=== PATIENT | male | born 1965 | race Caucasian/White ===

== ENCOUNTER 2019-06-10 14:00 | Emergency (ER) | payer OTHER ==
[~2019-06-10] VITALS: Ht 188 cm; Wt 81.7 kg
--- OUTSIDE RECORDS SUMMARY | ~2019-06-10 | XMS | Clinical Summary ---
Demographics + + + | Address | [address] | | | [place] [address] | + + + | Home Phone | | + + + | Preferred Language | Unknown | + + + | Marital Status | Unknown | + + + | Moravian Affiliation | Unknown | + + + | Race | Unknown | + + + | Ethnic Group | Unknown | + + + Author + + + | Author | NON REVENUE LOCATIONS | + + + | Organization | NON REVENUE LOCATIONS | + + + | Address | Unknown | + + + | Phone | Unavailable | + + + Care Team Providers + +------+ + | Care Novelty Twister Tender Name | Role | Phone | + +------+ + PCP | Unavailable | + +------+ + Source Comments FRANCESCA is fully live on both [facility] Ambulatory and [facility] InPatient.[facility] Allergies Not on File Medications Not on file Active Problems Not on file Social History + +-------+ +--------+------+ | Tobacco Use | Types | Packs/Day | Years | Date | | | | | Used | | + +-------+ +--------+------+ | Never Assessed | | | | | + +-------+ +--------+------+ + + + | Sex Assigned at | Date Recorded | | | | + + + | Not on file | | + + + + + + + | Job Start Date | Occupation | Industry | + + + + | Not on file | Not on file | Not on file | + + + + + + + + | Travel History | Travel Start | Travel End | + + + + + + | No recent travel history available. | + + Last Filed Vital Signs Not on file Plan of Treatment + + + + + | Health Maintenance | Due Date | Last Done | Comments | + + + + + | Influenza (Flu) | | | | | vaccination (#1) | 9 | | | + + + + + | Pneumococcal | Aged Out | | No longer eligible | | vaccination | | | based on patient's | | | | | age to complete this | | | | | topic | + + + + + Results Not on filefrom Last 3 Months"
--- OUTSIDE RECORDS SUMMARY | ~2019-06-10 | XMS | Encounter Summary ---
Demographics + + + | Address | [address] | | | [place] [address] | + + + | Home Phone | | + + + | Preferred Language | Unknown | + + + | Marital Status | Unknown | + + + | Baptism Affiliation | Unknown | + + + | Race | Unknown | + + + | Ethnic Group | Unknown | + + + Author + + + | Author | [facility] | + + + | Organization | [facility] | + + + | Address | Unknown | + + + | Phone | Unavailable | + + + Care Team Providers + +------+ + | Care House Builder Name | Role | Phone | + +------+ + | Lang Vaca MD | PCP | | + +------+ + Encounter Details +--------+ + + + + | Date | Type | Department | Care Team | Description | +--------+ + + + + | 06/13/ | Abstract | Digestive Health | Clinic, | | | 2013 | | Center at [facility] [address] | Gastroenterology | | | | | [address] [place] | | | | | | Mailcode: [place] | | | | | | [facility] and | | | | | | [facility] [address] | | | | | | [place], [place] | | | | | | [address] | | | | | | [phone] | | | +--------+ + + + [...] recent travel history available. | + + documented as of this encounter Plan of Treatment Not on filedocumented as of this encounter Visit Diagnoses Not on filedocumented in this encounter"
--- OUTSIDE RECORDS SUMMARY | ~2019-06-10 | XMS | Clinical Summary ---
Demographics + + + | Address | [address] | | | [place] [address] | + + + | Home Phone | | + + + | Preferred Language | Unknown | + + + | Marital Status | | + + + | Faith Affiliation | Unknown | + + + | Race | Unknown | + + + | Ethnic Group | Unknown | + + + Author + + + | Author | [facility] | | | and [place] | + + + | Organization | [facility] | | | and [place] | + + + | Address | Unknown | + + + | Phone | Unavailable | + + + Support + + +---------+ + | Name | Relationship | Address | Phone | + + +---------+ + | Wendi Perez | ECON | Unknown | | + + +---------+ + Care Team Providers + +------+ + | Care Special Services Director Name | Role | Phone | + +------+ + | Lang Vaca MD | PCP | | + +------+ + Allergies + + + + + + | Active Allergy | Reactions | Severity | Noted | Comments | | | | | Date | | + + + + + + | Erythromycin Base | Other (See Comments) | | 10/14/19 | Reaction not | | | | | 12 | specified in outside | | | | | | medical records. | + + + + + + | Tapentadol | | | | | | Hydrochloride | | | | | + + + + + + | Tetracycline Hcl | Hives | | 09/19/19 | | | | | | 19 | | + + + + + + Medications + + + +---------+------+------+-------+ | Medication | Sig | Dispensed | Refills | Star | End | Statu | | | | | | t | Date | s | | | | | | Date | | | + + + +---------+------+------+-------+ | GRALISE 600 MG | | | 0 | 04/2 | | Activ | | tablet | | | | 7/20 | | e | | | | | | 15 | | | + + + +---------+------+------+-------+ | Buprenorphine | Place under the | | 0 | | | Activ | | HCl-Naloxone HCl | tongue. | | | | | e | | (SUBOXONE SL) | | | | | | | + + + +---------+------+------+-------+ | TESTOSTERONE | | | 0 | | | Activ | | CYPIONATE IM | | | | | | e | + + + +---------+------+------+-------+ | BD HYPODERMIC | | | 0 | 08/0 | | Activ | | NEEDLE 18G X 1" MISC | | | | 4/20 | | e | | | | | | 18 | | | + + + +---------+------+------+-------+ | ondansetron | dissolve 1 tablet ON | | 0 | 09/2 | | Activ | | (ZOFRAN ODT) 4 mg | TONGUE every 4 | | | 8/20 | | e | | disintegrating | hours if needed | | | 18 | | | | tablet | | | | | | | + + + +---------+------+------+-------+ | ondansetron | | | 0 | 10/1 | | Activ | | (ZOFRAN) 4 mg tablet | | | | 5/20 | | e | | | | | | 18 | | | + + + +---------+------+------+-------+ | oxyCODONE | | | 0 | 08/1 | | Activ | | (OXYCONTIN) 10 mg ER | | | | 4/20 | | e | | abuse-deterrent | | | | 18 | | | | tablet | | | | | | | + + + +---------+------+------+-------+ | B-D 3CC JAMIE-ION | | | 0 | 08/0 | | Activ | | SYR 21GX1" 21G X 1" | | | | 4/20 | | e | | 3 ML MISC | | | | 18 | | | + + + +---------+------+------+-------+ | testosterone | inject 0.5 | | 0 | 09/1 | | Activ | | cypionate | milliliter | | | 1/20 | | e | | (DEPO-TESTOSTERONE) | intramuscularly | | | 18 | | | | 200 mg/mL injection | every OTHER WEEK | | | | | | + + + +---------+------+------+-------+ | testosterone | | | 0 | 12/0 | | Activ | | cypionate | | | | 1/20 | | e | | (DEPO-TESTOSTERONE) | | | | 18 | | | | 200 mg/mL injection | | | | | | | + + + +---------+------+------+-------+ | SUBOXONE 8-2 MG SL | | | 0 | 12/0 | | Activ | | film | | | | 1/20 | | e | | | | | | 18 | | | + + + +---------+------+------+-------+ | SUBOXONE 12-3 MG | DIS 1 FILM UNT ONCE | | 0 | 10/0 | | Activ | | SL film | D | | | 2/20 | | e | | | | | | 18 | | | + + + +---------+------+------+-------+ | SUBOXONE 4-1 MG SL | take 1 FILM under | | 0 | 09/2 | | Activ | | film | the tongue three | | | 8/20 | | e | | | times a day for pain | | | 18 | | | + + + +---------+------+------+-------+ Active Problems + + + | Problem | Noted Date | + + + | 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 | | + + + | ENTHESOPATHY OF UNSPECIFIED SITE | | + + + + + | Overview: ICD-10 Record update | + + + +---+ | DEGENERATIVE DISC DISEASE, THORACIC SPINE | | + +---+ | BACK PAIN, THORACIC REGION | | + +---+ Encounters +--------+ + + + + | Date | Type | Specialty | Care Team | Description | +--------+ + + + + | 04/09/ | Orders Only | | Provider, | | | 2019 | | | Historical, MD | | +--------+ + + + + from Last 3 Months Family History + + +------+ + | Medical History | Relation | Name | Comments | + + +------+ + | Heart disease | Father | | | + + +------+ + | Rheum arthritis | Father | | | + + +------+ + | Rheumatologic | Father | | | | disease | | | | + + +------+ + | No known problems | Maternal | | | | | Grandfath | | | | | er | | | + + +------+ + | No known problems | Maternal | | | | | Grandmoth | | | | | er | | | + + +------+ + | No known problems | Mother | | | + + +------+ + | Arthritis | Other | | | + + +------+ + | No known problems | Paternal | | | | | Grandfath | | | | | er | | | + + +------+ + | No known problems | Paternal | | | | | Grandmoth | | | | | er | | | + + +------+ + | Cancer | Neg Hx | | | + + +------+ + | Diabetes | Neg Hx | | | + + +------+ + | Hypertension | Neg Hx | | | + + +------+ + + +------+ + + | Relation | Name | Status | Comments | + +------+ + + | Father | | | | + +------+ + + | Maternal Grandfather | | | | + +------+ + + | Maternal Grandmother | | | | + +------+ + + | Mother | | | | + +------+ + + | Other | | | | + +------+ + + | Paternal Grandfather | | | | + +------+ + + | Paternal Grandmother | | | | + +------+ + + Social History + + + +--------+ + | Tobacco Use | Types | Packs/Day | Years | Date | | | | | Used | | + + + +--------+ + | Former Smoker | Cigarettes | | | Quit: 2016 | + + + +--------+ + + +---+---+---+ | Smokeless Tobacco: | | | | | Never Used | | | | + +---+---+---+ + + +---------+ + | Alcohol Use | Drinks/We | oz/Week | Comments | | | ek | | | + + +---------+ + | No | 0 | 0.0 | | | | Standard | | | | | drinks or | | | | | | | | | | equivalen | | | | | t | | | + + +---------+ + [...] | + + Last Filed Vital Signs + + + + | Vital Sign | Reading | Time Taken | + + + + | Blood Pressure | 125/83 | 01/15/20198 PDT | + + + + | Pulse | 80 | 01/15/20198 PDT | + + + + | Temperature | - | - | + + + + | Respiratory Rate | 15 | 03/09/2015 1326 PDT | + + + + | Oxygen Saturation | - | - | + + + + | Inhaled Oxygen | - | - | | Concentration | | | + + + + | Weight | 81.6 kg (180 lb) | 11/29/20181504 PDT | + + + + | Height | 185.4 cm (6' 1") | 11/29/2018 1505 PDT | + + + + | Body Mass Index | 23.75 | 11/29/20185 PDT | + + + + Plan of Treatment + + + + + | Health Maintenance | Due Date | Last Done | Comments | + + + + + | Vaccine: | | | | | Dtap/Tdap/Td (1 - | 6 | | | | Tdap) | | | | + + + + + | Colorectal Cancer | | | | | Screening | 7 | | | | (Colonoscopy) | | | | + + + + + | Vaccine: Zoster (1 | | | | | of 2) | 7 | | | + + + + + | Vaccine: Influenza | | 09/21/2013 | | | (#1) | 9 | | | + + + + + Results Not on filefrom Last 3 Months Insurance + +--------+ +--------+ +---------+--------+ | Payer | Benefi | Subscriber | Effect | Phone | Address | Type | | | t Plan | ID | pedro | | | | | | / | | Dates | | | | | | Group | | | | | | + +--------+ +--------+ +---------+--------+ | [employer] | [employer]ERT | [id number] | 11/16/19 | [phone] | | Indemn | | WC | Y | | 14-Pre | 6 | | ity | | | MUTUAL | | sent | | | | | | WC | | | | | | + +--------+ +--------+ +---------+--------+ | UMR | UMR | [id number] | 09/11/19 | | | PPO | | | [place] | | 18-Pre | | | | | | | | sent | | | | | | HEALTH | | | | | | | | CARE | | | | | | | | PPO | | | | | | + +--------+ +--------+ +---------+--------+ + +--------+ +--------+ + + | Guarantor Name | Accoun | Relation to | Date | Phone | Billing Address | | | t Type | Patient | of | | | | | | | | | | + +--------+ +--------+ + + | Osmel Perez | Person | Self | [birth year] | | [address] | | [place] | al/Fam | | 1964 | [address] | [place] [address] | | | de | | | 4 (Home) | | | | | | | [phone] | | | | | | | 7 (Work) | | + +--------+ +--------+ + + | Osmel Perez | Worker | Self | [birth year] | | [address] | | [place] | [employer]h Comp | | 1964 | | [place] [address] | | | | | | 4 (Home) | | | | | | | [phone] | | | | | | | 7 (Work) | | + +--------+ +--------+ + + Advance Directives Patient has advance care planning documents on file. For more information, please contact:[facility] [place] [address]
--- OUTSIDE RECORDS SUMMARY | ~2019-06-10 | XMS | Clinical Summary ---
Demographics + + + | Address | [address] | | | [place] [address] | + + + | Home Phone | | + + + | Preferred Language | Unknown | + + + | Marital Status | Unknown | + + + | Roman Catholic Affiliation | Unknown | + + + | Race | Unknown | + + + | Ethnic Group | Unknown | + + + Author + + + | Author | [facility] (Historical as of | | | 04-27-19) | + + + | Organization | [facility] (Historical as of | | | 04-27-19) | + + + | Address | Unknown | + + + | Phone | Unavailable | + + + Support + + +---------+ + | Name | Relationship | Address | Phone | + + +---------+ + | Contacts,No | ECON | Unknown | | + + +---------+ + Care Team Providers + +------+ + | Care Soccer Commentator Name | Role | Phone | + +------+ + PP | Unavailable | + +------+ + Allergies Not on File Current Medications Not on file Active Problems Not [...] on file | | + + + Last Filed Vital Signs + + + + | Vital Sign | Reading | Time Taken | + + + + | Blood Pressure | 112/80 | 06/04/2009 10:24 AM PDT | + + + + | Pulse | - | - | + + + + | Temperature | - | - | + + + + | Respiratory Rate | - | - | + + + + | Oxygen Saturation | - | - | + + + + | Inhaled Oxygen | - | - | | Concentration | | | + + + + | Weight | 82.4 kg (181 lb 9.6 | 06/04/2009 10:24 AM PDT | | | oz) | | + + + + | Height | 177.8 cm (5' 10") | 06/04/2009 10:24 AM PDT | + + + + | Body Mass Index | 26.06 | 06/04/2009 10:24 AM PDT | + + + + Plan [...] + + | Vaccine: Influenza | | | | | (#1) | 9 | | | + + + + + Results Not on filefrom Last 3 Months Insurance + +--------+ +------+-------+---------+ | Payer | Benefi | Subscriber | Type | Phone | Address | | | t Plan | ID | | | | | | / | | | | | | | Group | | | | | + +--------+ +------+-------+---------+ | [facility] | [place] | [id number] | | | | | | | | | | | | | HEALTH | | | | | | | CARE - | | | | | | | UMR | | | | | + +--------+ +------+-------+---------+ + +--------+ +--------+ + + | Guarantor Name | Accoun | Relation to | Date | Phone | Billing Address | | | t Type | Patient | of | | | | | | | | | | + +--------+ +--------+ + + | NAT PEREZ | Person | Self [birth year] | Home: | [address] | | | al/Fam | | 1965 | [phone] | [place] [address] | | | de | | | [phone] | | + +--------+ +--------+ + +
--- OUTSIDE RECORDS SUMMARY | ~2019-06-10 | XMS | Encounter Summary ---
Demographics + + + | Address | [address] | | | [place] [address] | + + + | Home Phone | | + + + | Preferred Language | Unknown | + + + | Marital Status | Unknown | + + + | Mandaen Affiliation | Unknown | + + + | Race | Unknown | + + + | Ethnic Group | Unknown | + + + Author + + + | Author | [facility] | + + + | Organization | [facility] | + + + | Address | Unknown | + + + | Phone | Unavailable | + + + Care Team Providers + +------+ + | Care Instructional Resource Teacher Name | Role | Phone | + +------+ + | Lang Vaca MD | PCP | | + +------+ + Encounter Details +--------+ + + + + | Date | Type | Department | Care Team | Description | +--------+ + + + + | 06/13/ | Abstract | Digestive Health | Clinic, | | | 2013 | | Center at [facility] [address] | Gastroenterology | | | | | [address] | | | | | | Mailcode: [place] | | | | | | [facility] and | | | | | | [facility] | | | | | | [place], [place] | | | | | | [address] | | | | | | [phone] | | | +--------+ + + + [...]
--- OUTSIDE RECORDS SUMMARY | ~2019-06-10 | XMS | Encounter Summary ---
Demographics + + + | Address | [address] | | | [place] [address] | + + + | Home Phone | | + + + | Preferred Language | Unknown | + + + | Marital Status | | + + + | Taoism Affiliation | Unknown | + + + | Race | Unknown | + + + | Ethnic Group | Unknown | + + + Author + + + | Author | [facility] | | | and [place] | + + + | Organization | [facility] | | | and [place] | [...] Team Providers + +------+ + | Care Machine Tool Dresser Name | Role | Phone | + +------+ + | Lang Vaca MD | PCP | | + +------+ + Encounter Details +--------+ + + + + | Date | Type | Department | Care Team | Description | +--------+ + + + + | 04/09/ | Orders Only | [facility] | Provider, | | | 2018 | | SYSTEM GENERIC OP | MD Prashanth Pino | | | | | CONVERSION [address] | [place] | | | | | [address] [place], [place] | [place] [address] | | | | | [address] | | | | | | [phone] | | | +--------+ + + + [...]
--- OUTSIDE RECORDS SUMMARY | ~2019-06-10 | XMS | Clinical Summary ---
Demographics + + + | Address | [address] | | | [place] [address] | + + + | Home Phone | | + + + | Preferred Language | Unknown | + + + | Marital Status | Unknown | + + + | Hoahaoism Affiliation | Unknown | + + + [...] Team Providers + +------+ + | Care Bus Driver Name | Role | Phone | + +------+ + PCP | Unavailable | + +------+ + Source Comments FRANCESCA is fully live on both [facility] Ambulatory and [facility] InPatient.[facility] Allergies Not on File Medications Not on [...]
--- OUTSIDE RECORDS SUMMARY | ~2019-06-10 | XMS | Clinical Summary ---
Demographics + + + | Address | [address] | | | [place] [address] | + + + | Home Phone | | + + + | Preferred Language | Unknown | + + + | Marital Status | Unknown | + + + | Lutheran Affiliation | Unknown | + + + | Race | Unknown | + + + | Ethnic Group | Unknown | + + + Author + + + | Author | [facility] (Historical as of | | | 04-27-19) | + + + | Organization | [facility] (Historical as of | | | 04-27-19) [...] Team Providers + +------+ + | Care Franchise Specialist Name | Role | Phone | [...] | | | + +--------+ +------+-------+---------+ | [facility] | [place] | [id number] | | | | | | | [...] | 1965 | [phone] | [place] [address] | | | de | | | [phone] | | + +--------+ +--------+ + +
--- OUTSIDE RECORDS SUMMARY | ~2019-06-10 | XMS | Clinical Summary ---
Demographics + + + | Address | [address] | | | [place] [address] | + + + | Home Phone | | + + + | Preferred Language | Unknown | + + + | Marital Status | | + + + | Cheondoism Affiliation | Unknown | + + + | Race | Unknown | + + + | Ethnic Group | Unknown | + + + Author + + + | Author | [facility] | | | and [place] | + + + | Organization | [facility] | | | and [place] [...] Team Providers + +------+ + | Care Chemical Supervisor Name | Role | Phone | [...] | [employer] | [place]ERT | [id number] | 11/16/19 | [phone] | | Indemn | | WC | Y | | 14-Pre | 6 | | ity | | | MUTUAL | | sent | | | | | | WC | | | | | | + +--------+ +--------+ +---------+--------+ | UMR | UMR | [id number] | 09/11/19 | | | PPO | [...] | 1964 | 68 | [place] [address] | | | de | | | 4 (Home) | | | | | | | [phone] | | | | | | | 7 (Work) | | + +--------+ +--------+ + + | Osmel Perez | Worker | Self | [birth year] | | [address] | | [place] | [employer]h Comp | | 1964 | | [place] [address] | | | | | | 4 (Home) | | | | | | | [phone] | | | | | | | 7 (Work) | | + +--------+ +--------+ + + Advance Directives Patient has advance care planning documents on file. For more information, please contact:[facility] [place] [address]
--- OUTSIDE RECORDS SUMMARY | ~2019-06-10 | XMS | Encounter Summary ---
Demographics + + + | Address | [address] | | | [place] [address] | + + + | Home Phone | | + + + | Preferred Language | Unknown | + + + | Marital Status | | + + + | Church Affiliation | Unknown | + + + | Race | Unknown | + + + | Ethnic Group | Unknown | + + + Author + + + | Author | [facility] | | | and [place] | + + + | Organization | [facility] | | | and [place] | [...] Team Providers + +------+ + | Care Payroll Tax Specialist Name | Role | Phone | + +------+ + | Lang Vaca MD | PCP | | + +------+ + Encounter Details +--------+ + + + + | Date | Type | Department | Care Team | Description | +--------+ + + + + | 04/09/ | Orders Only | [facility] | Provider, | | | 2018 | | SYSTEM GENERIC OP | MD Prashanth Pino | | | | | CONVERSION [address] | [place] | | | | | [address] [place], [place] | [place] [address] | | | | | [address] | | | | | | [phone] | | | +--------+ + + + [...]
[~2019-06-10 14:00] MED LIST: AMBIEN10 MG PO; BISACODYL5 MG PO; FLECTOR1 EACH TP; GRALISE600 MG PO; LEVOTHYROXINE100 MCG PO; LIDOCAINE-PRILO30 GM TOP; MIRALAX119 GM PO; OXYCODONE HCL5 MG PO; OXYCONTIN40 MG PO; PERCOCET 7.5-31 EACH PO; TESTIM5 GM TD
--- OUTSIDE RECORDS SUMMARY | 2019-06-10 14:04 | XMS ---
PreManage Notification: NAT SALAZAR Security Director [facility] Events No recent Security Events currently on file [facility] There are no care providers on record at this time. Roberto has no Care Guidelines for this patient. Maximiliano VISIT COUNT (12 MO.) 1 JACEK [place]en[place] TOTAL 1 NOTE: Visits indicate total known visits. ED/UCC VISIT TRACKING (12 MO.) 06/10/2019 14:01 JACEK Moura [place] TYPE: Emergency COMPLAINT: - RIGHT LEG/HIP PAIN INPATIENT VISIT TRACKING (12 MO.) No inpatient visits to display in this time frame [id number]
== END 2019-06-10 16:05 | disposition home or self-care (01) ==
LOC: ED 14:00
DX: S76.011A Strain of muscle, fascia and tendon of right hip, initial encounter (principal); W10.9XXA Fall (on) (from) unspecified stairs and steps, initial encounter; Z88.1 Allergy status to other antibiotic agents; Z79.899 Other long term (current) drug therapy; Z79.891 Long term (current) use of opiate analgesic
CPT/HCPCS: 73502; 96372; 99283-25; J1885

== ENCOUNTER 2020-06-18 15:15 | Emergency (ER) | payer OTHER ==
[~2020-06-18] VITALS: Ht 188 cm; Wt 81.7 kg
--- OUTSIDE RECORDS SUMMARY | ~2020-06-18 | XMS | Encounter Summary ---
Demographics + + + | Address | [address] | | | [place] [address] | + + + | Home Phone | | + + + | Preferred Language | Unknown | + + + | Marital Status | | + + + | Judaism Affiliation | Unknown | + + + | Race | White | + + + | Ethnic Group | Not or | + + + Author + + + | Author | [facility] | | | and [place] | + + + | Organization | [facility] | | | and [place] | + + + | Address | Unknown | + + + | Phone | Unavailable | + + + Support + + +---------+ + | Name | Relationship | Address | Phone | + + +---------+ + | Wendi Perez | ECON | Unknown | | + + +---------+ + Care Team Providers + +------+ + | Care Engine Oiler Name | Role | Phone | + +------+ + | Rosy Lee PA-C | PCP | | + +------+ + Encounter Details +--------+ + + + + | Date | Type | Department | Care Team | Description | +--------+ + + + + | 05/04/ | Imaging | [facility] | Provider, | | | 2018 | Exam | [facility] | [address] | | | | | [address] | [address] | | | | | [address] | [place] [address] | | | | | [place] [address] | | | | | | [phone] | | | +--------+ + + + + Social History + +-------+ +--------+------+ | Tobacco Use | Types | Packs/Day | Years | Date | | | | | Used | | + +-------+ +--------+------+ | Never Smoker | | | | | + +-------+ +--------+------+ + +---+---+---+ | Smokeless Tobacco: | | | | | Never Used | | | | + +---+---+---+ + + +---------+ + | Alcohol Use | Drinks/Week | oz/Week | Comments | + + +---------+ + | No | 0 Standard drinks | 0.0 | | | | or equivalent | | | + + +---------+ + + + + | Sex Assigned at | Date Recorded | | | | + + + | Not on file | | + + + documented as of this encounter Plan of Treatment Not on filedocumented as of this encounter Procedures + +--------+ + + + | Procedure Name | Priori | Date/Time | Associated Diagnosis | Comments | | | ty | | | | + +--------+ + + + | XR LUMBAR SPINE | Routin | 11/09/2017 | | Results for this | | COMPLETE INCLUDING | e | 4:20 PM | | procedure are in the | | BENDING 6 + VW | | PST | | results section. | + +--------+ + + + documented in this encounter Results XR Lumbar Spine Complete With Bending 6+ (11/09/2017 4:20 PM PST) + + | Specimen | + + | | + + + + + | Narrative | Performed At | + + + | External films for comparison only | [facility] | | | | | No results will be in the chart. | | + + + + +---------+ + + | Performing | Address | City/State/Zipcode | Phone Number | | Organization | | | | + +---------+ + + | [facility] | | | | + +---------+ + + documented in this encounter Visit Diagnoses Not on filedocumented in this encounter"
--- OUTSIDE RECORDS SUMMARY | ~2020-06-18 | XMS | Encounter Summary ---
Demographics + + + | Address | [address] | | | [place] [address] | + + + | Home Phone | | + + + | Preferred Language | Unknown | + + + | Marital Status | | + + + | Christian Affiliation | Unknown | + + + | Race | White | + + + | Ethnic Group | Not or | + + + Author + + + | Author | [facility] | | | and [place] | + + + | Organization | [facility] | | | and [...] Team Providers + +------+ + | Care Engineering Systems Analyst Name | Role | Phone | + +------+ + | Jai Lopez MD | PCP | | + +------+ + Reason for Visit + +--------+ + | Reason | Onset | Comments | | | Date | | + +--------+ + | Referral | 05/06/ | DO NOT SCHEDULE per Dr. Wen. Patient needs to go to | | (PreAuthorization) | 2013 | tertiary center in [facility] | + +--------+ + Encounter Details +--------+ + + + + | Date | Type | Department | Care Team | Description | +--------+ + + + + | 05/06/ | Telephone | [facility] | Jose Martin Wen MD | Referral | | 2013 | | GASTROENTEROLOGY | [address], [place] | (PreAuthorization) | | | | [address] [place] | [address] [place], [place] | (DO NOT SCHEDULE per | | | | [address] [place], [place] | [address] | Dr. Wen. Patient | | | | [phone] | | needs to go to | | | | [phone] | | tertiary center in | | | | | | [place] or [place]) | +--------+ + + + + Social [...] + + documented as of this encounter Miscellaneous Notes Telephone Encounter - Marybel Lyons - 05/06/2014 8:53 AM PDTCalled and spoke with Robert Vaca office about referral for this patient. I advised that Dr. Wen review the re cords and recommends patient be referred to a tertiary center in [place] or [place]. Robert verbalized understanding and will notify Dr. Vaca. documented in this encounter Plan of Treatment Not on filedocumented as of this encounter Visit Diagnoses Not on filedocumented in this encounter"
--- OUTSIDE RECORDS SUMMARY | ~2020-06-18 | XMS | Encounter Summary ---
Demographics + + + | Address | [address] | | | [place] [address] | + + + | Home Phone | | + + + | Preferred Language | Unknown | + + + | Marital Status | | + + + | Presybeterian Affiliation | Unknown | + + + | Race | White | + + + | Ethnic Group | Not or | + + + Author + + + | Author | [facility] | | | and [place] | + + + | Organization | [facility] | | | [...] Team Providers + +------+ + | Care Final Assembly And Packing Supervisor Name | Role | Phone | + [...] | | [address] | [place] [address] | | | | | [place] [address] | | | | | | [phone] | | | +--------+ + + + [...] + +--------+ + + + | XR THORACIC SPINE 3 | Routin | 11/09/2017 | | Results for this | | VW | e | 4:25 PM | | procedure are in the | | | | PST | | results section. | + +--------+ + + + documented in this encounter Results XR Thoracic Spine 3 Vw (11/09/2017 4:25 PM PST) + + | Specimen | [...]
--- OUTSIDE RECORDS SUMMARY | ~2020-06-18 | XMS | Encounter Summary ---
Demographics + + + | Address | [address] | | | [place] [address] | + + + | Home Phone | | + + + | Preferred Language | Unknown | + + + | Marital Status | | + + + | Episcopalian Affiliation | Unknown | + + + | Race | White | + + + | Ethnic Group | Not or | + + + Author + + + | Author | [facility] | | | and [place] | + + + | Organization | [facility] | | | and [...] Team Providers + +------+ + | Care Account Director Name | Role | Phone | + +------+ + | Lang Vaca MD | PCP | | + +------+ + Encounter Details +--------+ + + + + | Date | Type | Department | Care Team | Description | +--------+ + + + + | 11/15/ | Abstract | [facility] | Provider, | | | 2019 | | PHYSIATRY [address] | [address] | | | | | [address] | [place] | | | | | [place] | [place] [address] | | | | | [address] | | | | | | [phone] | | | +--------+ + + + + Social History + + + [...]
--- OUTSIDE RECORDS SUMMARY | ~2020-06-18 | XMS | Encounter Summary ---
Demographics + + + | Address | [address] | | | [place] [address] | + + + | Home Phone | | + + + | Preferred Language | Unknown | + + + | Marital Status | | + + + | Yarsani Affiliation | Unknown | + + + | Race | White | + + + | Ethnic Group | Not or | + + + Author + + + | Author | [facility] | | | and [place] | + + + | Organization | [facility] | | | [...] Team Providers + +------+ + | Care Cosmetics Supervisor Name | Role | Phone | + +------+ + | Lang Vaca MD | PCP | | + +------+ + Reason for Visit + + + | Reason | Comments | + + + | New Patient | Neck Pain | + + + Evaluate & Treat (Routine) +--------+--------+ + + + + | Status | Reason | Specialty | Diagnoses / | Referred By | Referred To | | | | | Procedures | Contact | Contact | +--------+--------+ + + + + | Closed | | Physical | Diagnoses | Larisa, | Rachna, | | | | Medicine and | Strain of | Becca, | zO Valles MD | | | | Rehabilitatio | left | PRODUCT SUPPORT SPECIALIST [address] | [address] | | | | n | shoulder | [address] | [place] | | | | | Strain of | [place], | [place], [place] | | | | | neck | [place] [address] | [address] Phone: | | | | | | Phone: | [phone] | | | | | | [phone] | Fax: | | | | | | Fax: | [phone] | | | | | | [phone] | | +--------+--------+ + + + + Encounter Details +--------+---------+ + + + | Date | Type | Department | Care Team | Description | +--------+---------+ + + + | 03/21/ | Office | [facility] | Ronal Benedict, | Spondylosis of | | 2019 | Visit | PHYSIATRY [address] | PA-C [address] | cervical region | | | | [address] [place] | without myelopathy | | | | [place], [place] | [place] [address] | or radiculopathy | | | | [address] | [phone] | | | | | [phone] | | | +--------+---------+ + + + Social History + + [...] + + documented as of this encounter Last Filed Vital Signs + + + + + | Vital Sign | Reading | Time Taken | Comments | + + + + + | Blood Pressure | 98/63 | 11/29/2018 3:05 PM | | | | | PDT | | + + + + + | Pulse | 65 | 11/29/2018 3:05 PM | | | | | PDT | | + + + + + | Temperature | - | - | | + + + + + | Respiratory Rate | - | - | | + + + + + | Oxygen Saturation | - | - | | + + + + + | Inhaled Oxygen | - | - | | | Concentration | | | | + + + + + | Weight | 81.6 kg (180 lb) | 11/29/2018 3:05 PM | | | | | PDT | | + + + + + | Height | 185.4 cm (6' 1") | 11/29/2018 3:05 PM | | | | | PDT | | + + + + + | Body Mass Index | 23.75 | 11/29/2018 3:05 PM | | | | | PDT | | + + + + + documented in this encounter Patient Instructions Patient Instructions Ronal Benedict PA-C - 11/29/2018 3:20 PM PDTCervical facet arthritis. Facet injections ordered to target bilateral C5/6 and C6/7 facet joints. If injections provide only temporary relief we can consider another treatment called radio frequency ablation (RFA) which can provide 6-24 months of relief. Before we can perform the RFA, another short term injection procedure must be completed called a medial branch block ( MBB). The MBB will only provide a few hours of relief but this is an insurance required diag nostic procedure that will help with pin-pointing the location for the RFA. It is imperative that you complete the pain diary for all injection procedures and turn in the completed for m to our office. Facet Pain: Visit this web link for a short, and informative video: [email or web address] The facet joint is located when the vertebrae (bones of the spine) connect to each other. Pain occurs with extension and rotation of the spine (bending backwards and rotating), bend ing over and lifting a heavy load, standing, first things in the morning. Images of the spi ne show facet arthritis, fluid in the facet joints. Treatment included rest, anti-inflammat ories, physical therapy focusing on core strengthening, facet steroid injections. Steroids are a very strong anti-inflammatory, this helps reduce pain by reducing swelling. Complications of steroids are bleeding, infection, and an increase of blood sugars if you are diabetic. ad terminal makeup operator risk can lead to osteoporosis which is why we limited the number of injections to 3 times per year. Facet joints are located when the vertebrae (bones of the spine) connect to each other. Typically these joints can have arthritis in this and give a person centralized low back pain. The procedure takes about 20 minutes. You lie on your b ack and x-rays are taken. Once the region is localized, it is numbed and then injected with steroid. Radiofrequency Ablation (RFA) Burning of the nerves: This procedure is typically done when the steroid injections give excellent initial relief but does not last long. It is the same procedure as the steroid injections however it take s approximately 2 hours to complete. A needle is placed inside the facet joints and then co nnected to a battery pack which heats up the needle to burn the nerves inside the joint. Yo u must not eat after midnight the night before as you are put into procedural sedation where you can hear and talk but do not feel pain. You must have a tanker driver to get home from the hospital. You will feel more bruising pain to the location of the needles for approxima tely 4-5 days after this procedure, but once that clears up, you should be pain free for 8 m onths to 2 years, depends on when the nerve grows back. Facet Joint Injection Back or neck pain may be caused by a problem with your facet joints. If so, a facet joint i njection may help. With this treatment, medicine is injected into certain facet joints. The injection can help your doctor find problem joints. It may also relieve your pain. What is a facet joint? Bones called vertebrae make up your spine. Each vertebra has facets (flat surfaces) that to uch where the vertebrae fit together. These form a structure called a facet joint on each si de of the vertebrae. What is a facet joint injection? One or more facet joints in your back or neck can become inflamed (swollen and irritated). This may cause pain. During a facet joint injection, medicine is injected into the inflamed joints. This treatment may help reduce inflammation and relieve pain. Pain reliefmay last for weeks to months or longer. If the pain returns, you may need a repeat injection. Getting ready To get ready for your treatment, do the following: At least a week before treatment, tell your healthcare provider what medicines you take. This includes aspirin. Ask whether you should stop taking any of them before treatment. Tell your provider if you are or allergic to any medicines. Follow any directions you are given for not eating or drinking before the treatment. If asked, bring X-rays, MRIs, or other tests with you on the day of your treatment. Date Last Reviewed: 12/10/201719994334-9496 [employer] [place] [address]. All righ ts reserved. This information is not intended as a substitute for professional medical care. Always follow your healthcare professional's instructions. documented in this encounter Progress Notes Ronal Benedict PA-C - 11/29/2018 3:20 PM PDTFormatting of this note might be different fro m the original. Ronal Benedict PA-C [address] [place], [place] [address] FAX: CHIEF COMPLAINT: Chief Complaint Patient presents with New Patient Neck Pain HISTORY OF PRESENT ILLNESS: The patient is a 53 y.o. male with the complaint of bilateral neck pain/stiffness that radiates into the left shoulder that flared up approximatley 2-3 mo nths ago. The patient states that the symptoms began as the result of a work related injury in 2013. The patient rates his pain and discomfort as mild-severe. Since the symptoms bega n, he has noticed that symptoms have been constant and gradually worsening. He describes th e pain as a crushing, sharp and shooting feeling. The patient denies any radiation of pain p ast the left shoulder. In 2014 patient had bilateral C5-C6 and C6-C7 facet injection with s ignificant relief that lasted approximately 2 years until recently he had a flareup and neck pain. This has restricted his head and neck movement significantly. The patient also describes loss of range of motion. The patient does not report loss of st rength. He does not indicate a history of loss of fine motor function. The patient does not reports bowel or bladder incontinence. The patient does not reports s addle paresthesias. His symptoms improve with nothing. His symptoms worsen with movement of the neck and head. Treatments for these complaints have included massage, TENS Unit, traction, narcotic pain m edications, anti inflammatories, steroid injections, and muscle relaxant medications. Patient's medications, allergies, past medical, surgical, social and family histories were reviewed and updated as appropriate. PAST MEDICAL HISTORY: Past Medical History: Diagnosis Date Chronic neck pain Chronic pain disorder Chronic thoracic spine pain Compression fracture of thoracic vertebra (HCC) Hypogonadism, male Neck sprain Neuropathy Hands Pneumothorax on right right sided x3 Rash Strain of left shoulder, initial encounter Strain of neck muscle, initial encounter Strain of right shoulder, initial encounter Thyroid disorder Xeroderma PAST SURGICAL HISTORY: Past Surgical History: Procedure Laterality Date CHOLECYCTOSTOMY 06/2013 CHOLECYSTECTOMY, LAPAROSCOPIC PLEURAL SCARIFICATION Right 3x to fix collapsed lung WISDOM TOOTH EXTRACTION CURRENT MEDICATIONS: Current Outpatient Prescriptions Medication Sig Dispense Refill Buprenorphine HCl-Naloxone HCl (SUBOXONE SL) Place under the tongue. GRALISE 600 MG tablet 0 TESTOSTERONE CYPIONATE IM No current facility-administered medications for this visit. ALLERGIES: Allergies Allergen Reactions Erythromycin Base Other (See Comments) Reaction not specified in outside medical records. Tapentadol Hydrochloride Tetracycline Hcl Hives SOCIAL HISTORY: The patient reports that he quit smoking about 3 years ago. His smoking use included Cigar ettes. He has never used smokeless tobacco. He reports that he does not drink alcohol or use drugs. FAMILY HISTORY: Family History Problem Relation Age of Onset Heart disease Father Rheumatologic disease Father Rheum arthritis Father Arthritis Other No known problems Mother No known problems Maternal Grandmother No known problems Maternal Grandfather No known problems Paternal Grandmother No known problems Paternal Grandfather Cancer Neg Hx Diabetes Neg Hx Hypertension Neg Hx REVIEW OF SYSTEMS: REVIEW OF SYSTEMS: GENERALLY: No fever, no night sweats, no anemia, no fatigue, no recent profound weight ch anges. EYES: No eye problems, + use of corrective lenses, no eye injury, no double vision, no bli ndness. EARS, NOSE, AND THROAT: No changes in taste or smell, no hearing difficulty, no ringing in the ears, no ear drainage, no dizziness, no voice changes, no difficulty swallowing, no sig nificant snoring, no sleep apnea, no sinus problems, no major dental work. NEUROLOGICALLY: Please see the review of systems discussed above in the history of present illness. In addition, the patient has neck injury, pain in neck. PSYCHIATRIC: No depression, no sleep disorders, no anxiety, no bipolar disorder, no psycho tic episodes. CARDIOVASCULAR: No heart attacks, no heart murmur, no heart fluttering, no chest pain, no ankle swelling. LUNG DISEASE: No shortness of breath, no cough, no tuberculosis, no bloody cough, no asth ma, no emphysema/COPD. GASTROINTESTINAL: No bowel disease, no nausea or vomiting, no rectal bleeding, no constipa tion, no stool incontinence, no liver disease, no gallbladder disease, no abdominal pain, no ulcers. KIDNEY DISEASE: No urinary frequency, no painful or difficult urination, no incontinence. ENDOCRINE: No diabetes, no thyroid disease, no osteopenia or osteoporosis, no breast drain age. SKIN: No breast lumps, no skin changes, no rashes, no itches. HEMATOLOGIC/LYMPHATIC: No enlarged lymph nodes, no easy or unusual bleeding, no personal h istory of cancer. RHEUMATOLOGIC: No joint arthritis, no rheumatoid arthritis. PHYSICAL EXAMINATION: Blood pressure 98/63, pulse 65, height 1.854 m (6' 1"), weight 81.6 kg (180 lb). Body mass index is 23.75 kg/m. GENERAL: Osmel Perez is in no acute distress with unlabored respirations. Th e patient does appear uncomfortable throughout the exam today. HEENT: HEAD/FACE: EYES: EARS: NASOPHARNYX: OROPHARNYX: Normocephalic and atraumatic. There are no areas of recent trauma. Normal sclerae without icterus. No drainage or tenderness. Clear without drainage. Clear without erythema. NECK (ANTERIOR): Supple and without palpable masses. CHEST: The patient is in no acute respiratory distress with unlabored respirations. HEART: There is not lower extremity edema. ABDOMEN: Soft, non-tender, non-distended, and without palpable masses. NEUROLOGIC: The patient is awake, alert, and oriented to time, place, person. He follows simple and complex commands. His speech is fluent. He comprehends speech well. He has no apparent deficits with short or salvage determiner memory. Cranial nerves 2-12 appear grossly intact. Sensory exam does not show diminished sensation to light touch in the upper extremities. MUSCULOSKELETAL Cervical Spine: The cervical spine exam shows there is no tenderness over t he C-4, C-5, C-6 and C-7 region. Range of motion is limited. Rotation and extension does n ot cause symptoms to radiate into the upper extremities on both sides. Flexion and extensi on of the neck does cause severe discomfort. Cervical extension and rotation causes most pa in. Cervical facet loading positive. Bilateral upper extremity strength 5/5 REFLEXES: (2 OR 2+ IS NORMAL) REFLEX: RIGHT LEFT BICEPS 2+ 2+ BRACHIORADIALIS 2+ 2+ TRICEPS 2+ 2+ PATELLAR 2+ 2+ ACHILLES 2+ 2+ MACHUCA'S ABSENT ABSENT PLANTAR DOWNGOING DOWNGOING EXTREMITIES: No cyanosis, clubbing, or edema. Distal pulses are palpable. RADIOGRAPHIC REVIEW: Cervical MRI from 12/02/14 was reviewed today and displays severe bilateral C6-C7 neural for aminal stenosis. There is also significant facet arthritis at C5-6 and C6-7. ASSESSMENT: Encounter Diagnosis Name Primary? Spondylosis of cervical region without myelopathy or radiculopathy PLAN: 1) Today we discussed the patient's differential diagnosis with the likely primary issue be ing CERVICAL SPONDYLOSIS. Patient's description of symptoms, physical exam, and imaging sug gest this diagnosis at this time. 2) I counseled patient on treatment options which included conservative self management usi ng OTC NSAIDs/Ice and heat packs, physical therapy, prescription medications, epidural stero id injection, as well as possible surgical intervention. 3) Imaging: As descibed above in radiology review. 4) The patient has had significant conservative care including medications (NSAIDS and narc otics), PT (multiple sessions over the years) and wound care technician. Unfortunately Osmel Perez continues to have significant discomfort. It appears to me that the pain i s primarily coming from C5/C6 and C6/C7 facet joints. Based on the patient's history, physical examination and review of the available imaging th e patient has been diagnosed with pain coming primarily from the lumbar facet joints with no other lumbar pathology considered to be a significant possible source of discomfort. The p atjustin's pain has been moderate to severe, rated as a 6+ usually on a 0-10 scale. The pain is impacting activities of daily living including c-spine bending, twisting, driving. The pa michael has been dealing with this pain for more than 3 months and has failed conservative sergo atment with NSAIDs, PT and a home exercise program therefore therapeutic facet injections we re ordered today. The patient has had bilateral C5-C6 and C6-7 facet injections in the past with significant relief. He is exhibiting symptoms today consistent with facet arthritis and will likely leon efit from these repeat facet injections. I did feel that Osmel Perez would be a good candidate for interventional p rocedures and I offered Bilateral C5/C6 and C6/C7 facet steroid injections to be done. We did discuss MBB/RFA as potential future custodial options if injection(s) provide rel ief, especially if immediate relief. 5) Patient will follow up with me 3 weeks post injection/as needed to discuss any imaging a nd/or progress with today's treatment plan. 6) If current treatment plan is insufficient for symptom relief we could try MBB/RFA or cer vical MRI as the next therapy option. I spent 30 minutes in visit with Osmel Perez today with the majority of time spent counselling the patient on his diagnosis, options for his care, and coordinating his c are. documented in this en counter Plan of Treatment Not on filedocumented as of this encounter Results [place] Facet Injection Cervical (01/15/2019 4:56 PM PDT) + + | Specimen | + + | | + + + + -+ | Narrative | Performed At | + + -+ | | [facility] | | 01/15/2019Cervical Facet Steroid Injections Diagnosis: Cervical | | | Spondylosis ICD-9 Code 721.0 Osmel Perez presents to the | | | fluoroscopy suite for fluoroscopically-guided bilateral C5-C6 and | | | C6-C7 facet injections as part of conservative management for chronic | | | pain with cervical spondylosis. After informed consent was obtained, | | | the patient laid in the prone position on the fluoroscopy table. The | | | areas were identified under fluoroscopic guidance. The areas were | | | prepped and draped in sterile fashion. A 25-gauge, 1.5-inch needle was | | | inserted into each region and approximately 3 mL of buffered 1% | | | lidocaine was infused. Then, a 22-gauge spinal needle was inserted | | | into the middle portion of each facet under fluoroscopic guidance. | | | Confirmation into the joint spaces was obtained with infusion of | | | approximately 1 mL of Omnipaque contrast which showed outline of the | | | facet joints. Then, a combination of 2 mL of 1% lidocaine and 2 mL of | | | 40 mg/mL Kenalog was infused divided between the 4 joints. The patient | | | tolerated the procedure well without complications. Pre- and | | | post-procedure blood pressures were stable. The patient was given | | | verbal as well as written follow-up instructions. Prior to the start | | | of the procedure, the following were performed and/or verified, | | | including correct patient identity, correct site/side marked and | | | visible, agreement on the procedure to be done, correct patient | | | positioning and an accurate procedure consent form. Any safety | | | precautions based on clinical history and/or medication use have been | | | addressed. I personally performed the procedure above. Estimated blood | | | loss: MinimalComplications: NoneFindings: As expectedAnesthesia: | | | Local 1% Lidocaine | | |positioning and an accurate procedure consent form. Any safety precautions | | |based on clinical history and/or medication use have been addressed. I | | |personally performed the procedure above. | | | | | |Estimated blood loss: Minimal | | |Complications: None | | |Findings: As expected | | |Anesthesia: Local 1% Lidocaine | | + + -+ + +---------+ + + | Performing | Address | City/State/Zipcode | Phone Number | | Organization | | | | + +---------+ + + | [facility] | | | | + +---------+ + + documented in this encounter Visit Diagnoses + + | Diagnosis | + + | Spondylosis of cervical region without myelopathy or radiculopathy Cervical | | spondylosis without myelopathy | + + documented in this encounter
--- OUTSIDE RECORDS SUMMARY | ~2020-06-18 | XMS | Encounter Summary ---
Demographics + + + | Address | [address] | | | [place] [address] | + + + | Home Phone | | + + + | Preferred Language | Unknown | + + + | Marital Status | | + + + | Mosque Affiliation | Unknown | + + + | Race | White | + + + | Ethnic Group | Not or | + + + Author + + + | Author | [facility] | | | and [place] | + + + | Organization | [facility] | | | [...] Team Providers + +------+ + | Care Hiv Counselor Name | Role | Phone | + +------+ + | Jai Lopez MD | PCP | | + +------+ + Reason for Visit +--------+--------+ + | Reason | Onset | Comments | | | Date | | +--------+--------+ + | Other | 11/30/ | | | | 2012 | | +--------+--------+ + Encounter Details +--------+ + + + + | Date | Type | Department | Care Team | Description | +--------+ + + + + | 11/30/ | Telephone | [facility] | Kilo Jang, | Other | | 2012 | | MEDICINE | MD [address] | | | | | [address] | [place] | | | | | [address] | [address] | | | | | [place] | | | | | | [address] | | | | | | [phone] | | | +--------+ + + + [...] this encounter Miscellaneous Notes Telephone Encounter - Frannie Gonzalez - 11/30/2012 10:32 AM PDTTelephone call to patient to schedule a consultation with Dr. Jang. Voice mail box is full, unable to leave message. documented in this encou nter Plan of Treatment Not on filedocumented as of this encounter Visit Diagnoses Not on filedocumented in this encounter"
--- OUTSIDE RECORDS SUMMARY | ~2020-06-18 | XMS | Encounter Summary ---
Demographics + + + | Address | [address] | | | [place] [address] | + + + | Home Phone | | + + + | Preferred Language | Unknown | + + + | Marital Status | | + + + | Amish Affiliation | Unknown | + + + | Race | White | + + + | Ethnic Group | Not or | + + + Author + + + | Author | [facility] | | | and [place] | + + + | Organization | [facility] | | | and [...] Team Providers + +------+ + | Care Oil Field Equipment Mechanic Supervisor Name | Role | Phone | + +------+ + | Rosy Lee PA-C | PCP | | + +------+ + Reason for Visit +--------+--------+ + | Reason | Onset | Comments | | | Date | | +--------+--------+ + | Other | 04/07/ | injection authorization | | | 2014 | | +--------+--------+ + Encounter Details +--------+ + + + + | Date | Type | Department | Care Team | Description | +--------+ + + + + | 04/07/ | Telephone | [facility] | Frank Boland, | Other (injection | | 2014 | | NEUROSURGERY [address] | DO [address] | authorization) | | | | [address] | [address] [place], [place] | | | | | [place], [place] | [address] | | | | | [address] | | | | | | [phone] | | | +--------+ + + + [...] this encounter Miscellaneous Notes Telephone Encounter - Ria Ngo Master of [place] - 04/07/2015 3:07 PM PDTNoi helen galeano [facility] [employer] provide us with authorization for injection (Facet documented in this encounter Plan of Treatment Not on filedocumented as of this encounter Visit Diagnoses Not on filedocumented in this encounter"
--- OUTSIDE RECORDS SUMMARY | ~2020-06-18 | XMS | Encounter Summary ---
Demographics + + + | Address | [address] | | | [place] [address] | + + + | Home Phone | | + + + | Preferred Language | Unknown | + + + | Marital Status | | + + + | Yazidi Affiliation | Unknown | + + + | Race | White | + + + | Ethnic Group | Not or | + + + Author + + + | Author | [facility] | | | and [place] | + + + | Organization | [facility] | | | [...] Team Providers + +------+ + | Care Sound Truck Operator Name | Role | Phone | + +------+ + | Rosy Lee PA-C | PCP | | + +------+ + Encounter Details +--------+ + + + + | Date | Type | Department | Care Team | Description | +--------+ + + + + | 05/10/ | Orders Only | [facility] [place] | Frank Boland, | Osteoarthritis of | | 2016 | | NEUROSURGERY [address] | DO [address] | cervical spine with | | | | [address] | [address] [place], [place] | myelopathy (Primary | | | | [place] | [address] | Dx) | | | | [address] | | | | | | [phone] | | | +--------+ + + + [...] filedocumented as of this encounter Visit Diagnoses + + | Diagnosis | + + | Osteoarthritis of cervical spine with myelopathy - Primary | + + documented in this encounter"
--- OUTSIDE RECORDS SUMMARY | ~2020-06-18 | XMS | Encounter Summary ---
Demographics + + + | Address | [address] | | | [place] [address] | + + + | Home Phone | | + + + | Preferred Language | Unknown | + + + | Marital Status | | + + + | Baptism Affiliation | Unknown | + + + | Race | White | + + + | Ethnic Group | Not or | + + + Author + + + | Author | [facility] | | | and [place] | + + + | Organization | [facility] | | | [...] Team Providers + +------+ + | Care Earring Maker Name | Role | Phone | + +------+ + | Rosy Lee PA-C | PCP | | + +------+ + Encounter Details +--------+ + + + + | Date | Type | Department | Care Team | Description | +--------+ + + + + | 05/28/ | Hospital | C GENERIC IP | Conversion | Pain | | 2018 | Encounter | CONVERSION [address] | Transaction, | | | | | [address] | Provider Unknown | | | | | [place] | [phone] | | | | | [address] | | | | | | [phone] | | | +--------+ + + + [...] + + documented as of this encounter Medications at Time of Discharge + + + +---------+ + + | Medication | Sig | Dispensed | Refills | Start | End Date | | | | | | Date | | + + + +---------+ + + | B-D 3CC NNEKA | | | 0 | 04/14/20 | | | SYR 21GX1" 21G X 1" | | | | 18 | | | 3 ML MISC | | | | | | + + + +---------+ + + | BD HYPODERMIC | | | 0 | /12/29 | | | NEEDLE 18G X 1" MISC | | | | 18 | | + + + +---------+ + + | GRALISE 600 MG | | | 0 | 01/06/20 | | | tablet | | | | 15 | | + + + +---------+ + + | oxyCODONE | | | 0 | 04/24/20 | | | (OXYCONTIN) 10 mg ER | | | | 18 | | | abuse-deterrent | | | | | | | tablet | | | | | | + + + +---------+ + + | testosterone | inject 0.5 | | 0 | 05/22/20 | | | cypionate | milliliter | | | 18 | | | (DEPO-TESTOSTERONE) | intramuscularly | | | | | | 200 mg/mL injection | every OTHER WEEK | | | | | + + + +---------+ + + | cyclobenzaprine | | | 0 | 10/14/19 | | | (FLEXERIL) 10 mg | | | | 12 | 9 | | tablet | | | | | | + + + +---------+ + + | diclofenac | apply 2 patches at a | | 0 | 05/25/20 | | | (FLECTOR) 1.3% PTCH | time to affected | | | 12 | 9 | | | areas two times | | | | | | | daily | | | | | + + + +---------+ + + | gabapentin | Take 300 mg by mouth | | 0 | 05/25/20 | | | (NEURONTIN) 300 mg | nightly. | | | 12 | 9 | | capsule | | | | | | + + + +---------+ + + | SHELBIE 290 MCG | | | 0 | 01/23/20 | | | capsule | | | | 15 | 9 | + + + +---------+ + + | oxyCODONE | Take 20 mg by mouth | | 0 | 05/25/20 | | | (OXYCONTIN) 20 mg 12 | every 12 hours. | | | 12 | 9 | | hr tablet | | | | | | + + + +---------+ + + | oxyCODONE | Take 5 mg by mouth 3 | | 0 | 05/25/20 | | | (ROXICODONE) 5 mg | times daily as | | | 12 | 9 | | tablet | needed. | | | | | + + + +---------+ + + | | Take 1 tablet by | | 0 | | | | oxyCODONE-acetaminop | mouth every 4 hours | | | | 9 | | hen (PERCOCET) | as needed for Pain. | | | | | | 7.5-325 mg per | | | | | | | tablet | | | | | | + + + +---------+ + + | OXYCONTIN 40 MG ER | | | 0 | 12/31/19 | | | abuse-deterrent | | | | 15 | 9 | | tablet | | | | | | + + + +---------+ + + | oxymorphone | 1-2 tablets every | | 0 | 05/25/20 | | | (OPANA) 5 MG tablet | 4-6 hours as needed | | | 12 | 9 | + + + +---------+ + + | Testosterone | GEL apply every | | 0 | 05/25/20 | | | (TESTIM TD) | morning to clean, | | | 12 | 9 | | | dry, intact skin of | | | | | | | shoulders and upper | | | | | | | arms | | | | | + + + +---------+ + + | tiZANidine | Take 4 mg by mouth | | 0 | 05/25/20 | | | (ZANAFLEX) 4 mg | Twice daily as | | | 12 | 9 | | tablet | needed. | | | | | + + + +---------+ + + | zolpidem (AMBIEN) | Take 10 mg by mouth | | 0 | 05/25/20 | | | 10 mg tablet | nightly as needed. | | | 12 | 9 | + + + +---------+ + + documented as of this encounter Plan of Treatment Not on filedocumented as of this encounter Procedures + +--------+ + + + | Procedure Name | Priori | Date/Time | Associated Diagnosis | Comments | | | ty | | | | + +--------+ + + + | MRI LUMBAR SPINE WO | Routin | 01/12/2018 | | Results for this | | CONTRAST | e | 10:48 PM | | procedure are in the | | | | PDT | | results section. | + +--------+ + + + documented in this encounter Results MRI Lumbar Spine wo Contrast (01/12/2018 10:48 PM PDT) + + | Specimen | + + | | + + + + + | Narrative | Performed At | + + + | This is a non-reportable procedure without a radiologist report and | | | is used for image storage only | | + + + + + | Procedure Note | + + | Jhonathan Torres - 04/24/2019 8:31 AM PDT This is a non-reportable procedure | | without a radiologist report and isused for image storage only | + + documented in this encounter Visit Diagnoses + + | Diagnosis | + + | Pain Generalized pain | + + documented in this encounter
--- OUTSIDE RECORDS SUMMARY | ~2020-06-18 | XMS | Encounter Summary ---
Demographics + + + | Address | [address] | | | [place] [address] | + + + | Home Phone | | + + + | Preferred Language | Unknown | + + + | Marital Status | | + + + | Samaritan Affiliation | Unknown | + + + | Race | White | + + + | Ethnic Group | Not or | + + + Author + + + | Author | [facility] | | | and [place] | + + + | Organization | [facility] | | [...] Team Providers + +------+ + | Care Ground Services Instructor Name | Role | Phone | + +------+ + | Rosy Lee PA-C | PCP | | + +------+ + Reason for Visit Service/Procedure (Routine) +--------+--------+ + + + + | Status | Reason | Specialty | Diagnoses / | Referred By | Referred To | | | | | Procedures | Contact | Contact | +--------+--------+ + + + + | Closed | | Radiology | Diagnoses | | [facility] | | | | | Cervical | Rachna, | [address] | | | | | spondylosis | Oz Valles MD | [place], | | | | | Procedures | [address] | [place] | | | | | [place] | [place] | [address] | | | | | DX/THER AGNT | [place] | Phone: | | | | | [place] | [address] | [phone] | | | | | FACET JOINT, | Phone: | Fax: | | | | | | [phone] | [phone] | | | | | CERV/THORAC, | Fax: | | | | | | 1ST LEVEL | [phone] | | | | | | [place] | | | | | | | DX/THER AGNT | | | | | | | [place] | | | | | | | FACET JOINT, | | | | | | | | | | | | | | CERV/THORAC, | | | | | | | 2ND LEVEL | | | | | | | [place] | | | | | | | TRIAMCINOLON | | | | | | | E ACET INJ | | | | | | | NOS, 10 MG | | | | | | | Bilat C5-6, | | | | | | | C6-7 | | | | | | | Facet-referr | | | | | | | al from | | | | | | | Kya | | | +--------+--------+ + + + + Encounter Details +--------+ + + + + | Date | Type | Department | Care Team | Description | +--------+ + + + + | 05/11/ | Hospital | [facility] | Oz Briscoe | Cervical spondylosis | | 2015 | Encounter | MED CTR XRAY [address] | T, [address] | | | | | [address] [place] | [place], [place] | | | | | [place] [address] | [address] | | | | | [phone] | | | | | | | C Software Developer, [facility] | | | | | | [place] | | +--------+ + + + + [...] this encounter Last Filed Vital Signs + +---------+ + + | Vital Sign | Reading | Time Taken | Comments | + +---------+ + + | Blood Pressure | 139/81 | 05/11/2015 3:54 PM | | | | | PDT | | + +---------+ + + | Pulse | 48 | 05/11/2015 3:54 PM | | | | | PDT | | + +---------+ + + | Temperature | - | - | | + +---------+ + + | Respiratory Rate | - | - | | + +---------+ + + | Oxygen Saturation | - | - | | + +---------+ + + | Inhaled Oxygen | - | - | | | Concentration | | | | + +---------+ + + | Weight | - | - | | + +---------+ + + | Height | - | - | | + +---------+ + + | Body Mass Index | - | - | | + +---------+ + + documented in this encounter Medications at Time of Discharge [...] + + + +---------+ + + | LINZESS 290 MCG | | | 0 | [...] | + +--------+ + + + | FL FACET INJECTION | Routin | 05/11/2015 | Cervical | Results for this | | CERVICAL | e | 3:50 PM | spondylosis | procedure are in the | | | | PDT | | results section. | + +--------+ + + + documented in this encounter Results FL Facet Injection Cervical (05/11/2015 3:50 PM PDT) + + | Specimen | + + | | + + + + + | Narrative | Performed At | + + + | 05/11/2015 Cervical Facet Steroid Injections Diagnosis: Cervical | [facility] | | Spondylosis ICD-9 Code 721.0 Osmel Perez | [facility] | | presents to the fluoroscopy suite for fluoroscopically-guided [facility] | | bilateral C5-C6 and C6-C7 facet injections as part of conservative | - IMAGING | | management for chronic pain with cervical spondylosis. After | | | informed consent was obtained, the patient laid in the prone | | | position on the fluoroscopy table. The areas were identified under | | | fluoroscopic guidance. The areas were prepped and draped in sterile | | | fashion. A 25-gauge, 1.5-inch needle was inserted into each region and | | | approximately 3 mL of buffered 1% lidocaine was infused. Then, a | | | 22-gauge spinal needle was inserted into the middle portion of each | | | facet under fluoroscopic guidance. Confirmation into the joint | | | spaces was obtained with infusion of approximately 1 mL of Omnipaque | | | contrast which showed outline of the facet joints. Then, a | | | combination of 2 mL of 1% lidocaine and 2 mL of 40 mg/mL Kenalog was | | | infused divided between the 4 joints. The patient tolerated the | | | procedure well without complications. Pre- and post-procedure blood | | | pressures were stable. The patient was given verbal as well as | | | written follow-up instructions. Prior to the start of the | | | procedure, the following were performed and/or verified, including | | | correct patient identity, correct site/side marked and visible, | | | agreement on the procedure to be done, correct patient positioning | | | and an accurate procedure consent form. Any safety precautions based | | | on clinical history and/or medication use have been addressed. I | | | personally performed the procedure above. Estimated blood loss: | | | Minimal Complications: None Findings: As expected Anesthesia: Local | | | 1% Lidocaine | | + + + + + + + + | Performing | Address | City/State/Zipcode | Phone Number | | Organization | | | | + + + + + | [facility] | [address] | [place] | [phone] | | [facility] | | [address] | | | - IMAGING | | | | + + + + + documented in this encounter Visit Diagnoses + + | Diagnosis | + + | Cervical spondylosis Cervical spondylosis without myelopathy | + + documented in this encounter Administered Medications + +--------+ +-------+------+ + | Medication Order | MAR | Action | Dose | Rate | Site | | | Action | Date | | | | + +--------+ +-------+------+ + | iohexol (OMNIPAQUE 300) 300 | Given | 05/11/20 | 4 mLs | | Other | | mg/mL injection 4 mL 4 mL, | | 15 4:00 | | | (Comment | | Intra-articular, ONCE, Mon | | PM PDT | | | ) | | 05/11/15 at 1600, For 1 dose | | | | | | + +--------+ +-------+------+ + +---+---+ | | | +---+---+ + +-------+ +-------+---+ + | lidocaine 1% injection 5 mL 5 | Given | 05/11/20 | 5 mLs | | Other | | mL, Intradermal, ONCE, Mon | | 15 4:00 | | | (Comment | | 05/11/15 at 1600, For 1 dose | | PM PDT | | | ) | + +-------+ +-------+---+ + +---+---+ | | | +---+---+ + +-------+ +-------+---+---+ | sodium bicarbonate (NEUT) 4% | Given | 05/11/20 | 2 mLs | | | | injection 2 mL 2 mL, | | 15 4:00 | | | | | Infiltration, ONCE, 05/11/15 | | PM PDT | | | | | at 1600, For 1 dose, Use for | | | | | | | addition to other parenteral | | | | | | | solutions., | | | | | | + +-------+ +-------+---+---+ +---+---+ | | | +---+---+ + +-------+ +-------+---+---+ | triamcinolone acetonide | Given | 05/11/20 | 80 mg | | | | (KENALOG-40) 40 mg/mL injection | | 15 4:00 | | | | | 80 mg 80 mg, Intra-articular, | | PM PDT | | | | | ONCE, 05/11/15 at 1600, For 1 | | | | | | | dose, Shake well. Not for IV | | | | | | | use., | | | | | | + +-------+ +-------+---+---+ +---+---+ | | | +---+---+ documented in this encounter"
--- OUTSIDE RECORDS SUMMARY | ~2020-06-18 | XMS | Encounter Summary ---
Demographics + + + | Address | [address] | | | [place] [address] | + + + | Home Phone | | + + + | Preferred Language | Unknown | + + + | Marital Status | | + + + | Holiness Affiliation | Unknown | + + + | Race | White | + + + | Ethnic Group | Not or | + + + Author + + + | Author | [facility] | | | and [place] | + + + | Organization | [facility] | | | and [...] Team Providers + +------+ + | Care Studio Potter Name | Role | Phone | + +------+ + | Jai Lopez MD | PCP | | + +------+ + Encounter Details +--------+ + + + + | Date | Type | Department | Care Team | Description | +--------+ + + + + | 01/27/ | Orders Only | [facility] [place] | Frank Boland, | Neck pain (Primary | | 2015 | | NEUROSURGERY [address] | DO [address] | Dx) | | | | [address] | [address] [place] | | | | | [place] | [address] | | | | | [address] | | | | | | [phone] | | | +--------+ + + + [...] on filedocumented as of this encounter Results XR CERVICAL SPINE 2 OR 3 VIEWS (03/09/2015 12:54 PM PDT) + + | Specimen | + + | | + + + + + | Narrative | Performed At | + + + | XR CERVICAL SPINE 2 OR 3 VIEWS 03/09/2015 12:39 PM HISTORY: neck | [facility] | | pain. COMPARISON: None. FINDINGS: Visualized skull base and | [facility] | | facial structures demonstrate no acute findings. Prevertebral soft | [facility] | | tissues are normal. Mild degenerative changes are present of the | - IMAGING | | anterior atlantoaxial joint. There is mild cervical spondylosis. | | | There is no evidence for instability during flexion and extension. | | | Small posterior disc osteophyte complexes are observed from C4-5 | | | through C5-6. Bone mineralization is normal. The dens is normal. | | | Vertebral body height are preserved with no evidence for compression | | | fractures. There is moderate disc narrowing at C6-7. Facet joints are | | | intact. Soft tissue structures are unremarkable. Visualized upper | | | chest demonstrates no acute findings. IMPRESSION - Multilevel | | | degenerative changes with no evidence for instability. Dictated | | | and Signed by: Elijah Guthrie MD Electronically signed: 03/09/2015 | | | 1:34 PM | | + + + + + | Procedure Note | + + | Brian, Rad Results In - 03/09/2015 1:37 PM PDT XR CERVICAL SPINE 2 OR 3 VIEWS | | 03/09/2015 12:39 PMHISTORY: neck pain.COMPARISON: None.FINDINGS:Visualized skull base and | | facial structures demonstrate no acute findings.Prevertebral soft tissues are | | normal.Mild degenerative changes are present of the anterior atlantoaxial joint. Thereis | | mild cervical spondylosis. There is no evidence for instability duringflexion and | | extension. Small posterior disc osteophyte complexes are observedfrom C4-5 through C5-6. | | Bone mineralization is normal. The dens is normal.Vertebral body height are preserved | | with no evidence for compression fractures.There is moderate disc narrowing at C6-7. | | Facet joints are intact. Soft tissuestructures are unremarkable. Visualized upper chest | | demonstrates no acutefindings. IMPRESSION -Multilevel degenerative changes with no | | evidence for instability.Dictated and Signed by: Elijah Guthrie MD Electronically signed: | | 03/09/2015 1:34 PM | |flexion and extension. Small posterior disc osteophyte complexes are observed | |from C4-5 through C5-6. Bone mineralization is normal. The dens is normal. | |Vertebral body height are preserved with no evidence for compression fractures. | |There is moderate disc narrowing at C6-7. Facet joints are intact. Soft tissue | |structures are unremarkable. Visualized upper chest demonstrates no acute | |findings. | | | |IMPRESSION - | |Multilevel degenerative changes with no evidence for instability. | | | |Dictated and Signed by: Elijah Guthrie MD | | Electronically signed: 03/09/2015 1:34 PM | + + + + + + + | Performing | Address | City/State/Zipcode | Phone Number | | Organization | | | | + + + + + | [facility] | [address] | [place] | [phone] | | [facility] | | [address] | | | - IMAGING | | | | + + + + + documented in this encounter Visit Diagnoses + + | Diagnosis | + + | Neck pain - Primary Cervicalgia | + + documented in this encounter"
--- OUTSIDE RECORDS SUMMARY | ~2020-06-18 | XMS | Encounter Summary ---
Demographics + + + | Address | [address] | | | [place] [address] | + + + | Home Phone | | + + + | Preferred Language | Unknown | + + + | Marital Status | | + + + | Christian Affiliation | Unknown | + + + | Race | White | + + + | Ethnic Group | Not or | + + + Author + + + | Author | [facility] | | | and [place] | + + + | Organization | [facility] | | [...] Team Providers + +------+ + | Care Flight Communications Specialist Name | Role | Phone | + +------+ + | Jai Lopez MD | PCP | | + +------+ + Encounter Details +--------+ + + + + | Date | Type | Department | Care Team | Description | +--------+ + + + + | 04/08/ | Orders Only | [facility] [place] | Stacey Ontiveros, | Cervical spondylosis | | 2015 | | PHYSIATRY [address] | [facility] | (Primary Dx) | | | | [address] | | | | | | [place] | | | | | | [address] | | | | | | [phone] | | | +--------+ + + + [...] Cervical Facet Steroid Injections Diagnosis: Cervical | [facility] | | Spondylosis ICD-9 Code 721.0 Osmel Perez | [place] | | presents to the fluoroscopy suite for fluoroscopically-guided [facility] | | bilateral C5-C6 and C6-C7 [...] + | [facility] | [address] | [place] | [phone] | | [facility] | | [address] | | | - IMAGING | | | | + + + + + documented in this encounter Visit Diagnoses + + | Diagnosis | + + | Cervical spondylosis - Primary Cervical spondylosis without myelopathy | + + documented in this encounter"
--- OUTSIDE RECORDS SUMMARY | ~2020-06-18 | XMS | Clinical Summary ---
Demographics + + + | Address | [address] | | | [place] [address] | + + + | Home Phone | | + + + | Preferred Language | Unknown | + + + | Marital Status | Unknown | + + + | Mormonism Affiliation | Unknown | + + + [...] Team Providers + +------+ + | Care Color Dipper Name | Role | Phone | + +------+ + PCP | Unavailable | + +------+ + Source Comments FRANCESCA is fully live on both [facility] and [facility] InPatient.[facility]ly [facility] & [facility] Allergies Not on File Medications Not on [...] + + + Last Filed Vital Signs Not on file Plan of Treatment + + +-------+ + | Health Maintenance | Due Date | Last | Comments | | | | Done | | + + +-------+ + | Influenza (Flu) | | | | | vaccination (#1) | 0 | | | + + +-------+ + | Pneumococcal | Aged Out | | No longer eligible based on patient's age | | vaccination | | | to complete this topic | + + +-------+ + Results Not on filefrom Last 3 Months"
--- OUTSIDE RECORDS SUMMARY | ~2020-06-18 | XMS | Clinical Summary ---
Demographics + + + | Address | [address] | | | [place] [address] | + + + | Home Phone | | + + + | Preferred Language | Unknown | + + + | Marital Status | | + + + | Zoroastrianism Affiliation | Unknown | + + + | Race | White | + + + | Ethnic Group | Not or | + + + Author + + + | Author | [facility] | | | and [place] | + + + | Organization | [facility] | | [...] Team Providers + +------+ + | Care Various Exceptionalities Teacher Name | Role | Phone | [...] | + + + +---------+------+------+-------+ | B-D 3CSeth EARLY | | | 0 | 08/0 | [...] PAIN, THORACIC REGION | | + +---+ Family History + + +------+ + | [...] + | Blood Pressure | 125/83 | 01/15/2019 5:18 PM | | | | | PDT | | + + + + + | Pulse | 80 | 01/15/2019 5:18 PM | | | | | PDT | | + + + + + | Temperature | - | - | | + + + + + | Respiratory Rate | 15 | 03/09/2015 1:26 PM | | | | | PDT [...] | | + + + + + Plan of Treatment + + + + + | Health Maintenance | Due Date | Last | Comments | | | | Done | | + + + + + | Hepatitis C | | | | | Screening | 7 | | | + + + + + | Med Mgmt: Cr | | | | | | 7 | | | + + + + + | Med Mgmt: eGFR | | | | | | 7 | | | + + + + + | Medication | | | | | Management | 7 | | | + + [...] + + | Vaccine: Influenza | | 09/21/19 | | | (#1) | 0 | 14 | | + + + + + [...] | | + +--------+ +--------+ +---------+--------+ | [employer] | [employer]BOOGIE | [id number] | 11/16/19 | [phone] | | Indemn | | WC | Y | | 14-Pre | 6 | | ity | | | MUTUAL | | sent | | | | | | WC | | | | | | + +--------+ +--------+ +---------+--------+ | UMR | UMR | [id number] | 09/11/19 | | | PPO | [...] Self | [birth year] | | [address] | | Jose [place]jeandro | al/Fam | | 1965 | [phone] | [place] [address] | | | de | | | 4 (Home) | | | | | | | [phone] | | | | | | | 7 (Work) | | + +--------+ +--------+ + + | Osmel Perez | Worker | Self | [birth year] | | [address] | | [place]andro | [employer] | | 1964 | [phone] | [place] [address] | | | | | | 4 (Home) | | | | | | | [phone] | | | | | | | 7 (Work) | | + +--------+ +--------+ + + Advance Directives + + + + + | Type | Date Recorded | Patient | Explanation | | | | Shot Tube Machine Tender | | + + + + + | Power of | | | | | Metal Cnc Operator | | | | + + + + + | Advance | 01/15/2019 4:26 | | | | Directive | PM | | | + + + + +
--- OUTSIDE RECORDS SUMMARY | ~2020-06-18 | XMS | Encounter Summary ---
Demographics + + + | Address | [address] | | | [place] [address] | + + + | Home Phone | | + + + | Preferred Language | Unknown | + + + | Marital Status | | + + + | Roman Catholic Affiliation | Unknown | + + + | Race | White | + + + | Ethnic Group | Not or | + + + Author + + + | Author | [facility] | | | and [place] | + + + | Organization | [facility] | | [...] Team Providers + +------+ + | Care Expedition Supervisor Name | Role | Phone | [...] | | | | [place] | [phone] | | | | | [address] | | | | | | [phone] | | | +--------+ + + + [...] this | | VW | e | 10:45 PM | | procedure are in the | | | | PST | | results section. | + +--------+ + + + documented in this encounter Results XR Thoracic Spine 3 Vw (11/09/2017 10:45 PM PST) + + | Specimen | [...]
--- OUTSIDE RECORDS SUMMARY | ~2020-06-18 | XMS | Encounter Summary ---
Demographics + + + | Address | [address] | | | [place] [address] | + + + | Home Phone | | + + + | Preferred Language | Unknown | + + + | Marital Status | | + + + | Jew Affiliation | Unknown | + + + [...] Team Providers + +------+ + | Care Oncology Pharmacist Name | Role | Phone | + [...] | | KENDY [place] | [place] [address] | | | | | [place] [address] | | | | | | [phone] | | | +--------+ + + + [...] this | | CONTRAST | e | 1:35 PM | | procedure are in the | | | | PDT | | results section. | + +--------+ + + + documented in this encounter Results MRI Lumbar Spine wo Contrast (01/12/2018 1:35 PM PDT) + + | Specimen | [...]
--- OUTSIDE RECORDS SUMMARY | ~2020-06-18 | XMS | Encounter Summary ---
Demographics + + + | Address | [address] | | | [place] [address] | + + + | Home Phone | | + + + | Preferred Language | Unknown | + + + | Marital Status | | + + + | Cheondoism Affiliation | Unknown | + + + | Race | White | + + + | Ethnic Group | Not or | + + + Author + + + | Author | [facility] | | | and [place] | + + + | Organization | [facility] | | | [...] Team Providers + +------+ + | Care Human Resources Benefits Coordinator Name | Role | Phone | + +------+ + | Jai Lopez MD | PCP | | + +------+ + Encounter Details +--------+ + + + + | Date | Type | Department | Care Team | Description | +--------+ + + + + | 02/26/ | Abstract | [facility] [place] | Frank Boland, | | | 2014 | | NEUROSURGERY [address] | DO [address] | | | | | [facility] [address] | [address] [place] | | | | | [place] | [address] | | | | | [address] | | | | | | [phone] | | | +--------+ + + + [...]
--- OUTSIDE RECORDS SUMMARY | ~2020-06-18 | XMS | Encounter Summary ---
Demographics + + + | Address | [address] | | | [place] [address] | + + + | Home Phone | | + + + | Preferred Language | Unknown | + + + | Marital Status | | + + + | Buddhist Affiliation | Unknown | + + + | Race | White | + + + | Ethnic Group | Not or | + + + Author + + + | Author | [facility] | | | and [place] | + + + | Organization | [facility] | | | and [place] | + [...] Team Providers + +------+ + | Care Television Service Engineer Name | Role | Phone | + +------+ + | Jai Lopez MD | PCP | | + +------+ + Reason for Visit + + + | Reason | Comments | + + + | New Patient | Neck pain | + + + Evaluate & Treat (Routine) +--------+--------+ + + + + | Status | Reason | Specialty | Diagnoses / | Referred By | Referred To | | | | | Procedures | Contact | Contact | +--------+--------+ + + + + | Closed | | Neurosurgery | Diagnoses | Mckeon, | Kya, | | | | | Cervical | Manuel Leyva, | Frank Medrano DO | | | | | spondylosis | MD [address] | [address] | | | | | without | [place] | [address] | | | | | myelopathy | [place], | [place] | | | | | Procedures | [place] [address] | [address] Phone: | | | | | [place] OFFICE | Phone: | [phone] | | | | | CONSULTATION | [phone] | Fax: | | | | | NEW/ESTAB | Fax: | [phone] | | | | | PATIENT 62 | [phone] | | | | | | MIN | | | +--------+--------+ + + + + Encounter Details +--------+---------+ + + + | Date | Type | Department | Care Team | Description | +--------+---------+ + + + | 06/29/ | Office | [facility] | Frank Boland, | Kyphosis of cervical | | 2015 | Visit | NEUROSURGERY [address] | DO [address] | region, unspecified | | | | [address] | [address] [place], [place] | kyphosis type | | | | [place], [place] | [address] | (Primary Dx); | | | | [address] | | Cervical | | | | [phone] | | spondylosis; | | | | | | Cervical stenosis of | | | | | | spinal canal; | | | | | | Cervical radicular | | | | | | pain; Cervicalgia | +--------+---------+ + + + Social History + +-------+ [...] + + + | Blood Pressure | 110/65 | 03/09/2015 1:26 PM | | | | | PDT | | + + + + + | Pulse | 50 | 03/09/2015 1:26 PM | | | [...] Weight | 81.6 kg (180 lb) | 03/09/2015 1:26 PM | | | | | PDT | | + + + + + | Height | 185.4 cm (6' 1") | 03/09/2015 1:26 PM | | | | | PDT | | + + + + + | Body Mass Index | 23.75 | 03/09/2015 1:26 PM | | | | | PDT | | + + + + + documented in this encounter Patient Instructions Patient Instructions Frank Boland DO - 03/09/2015 2:07 PM PDTPlease undergo cervical f acet injections. Please follow-up with me as needed.Electronically signed by Frank Boland DO at 5 2:08 PM PDT documented in this encounter Progress Notes Frank Boland DO - 03/09/2015 2:08 PM PDTFormatting of this note might be different fro m the original. Frank Boland DO [address] [facility] [place] [address] FAX: NEUROSURGERY HISTORY AND PHYSICAL EXAMINATION CHIEF COMPLAINT: Chief Complaint Patient presents with New Patient Neck pain HISTORY OF PRESENT ILLNESS: The patient is a 49 y.o. male with the complaint of neck pain symptoms that began 1 year ago. The patient describes hitting his head on a door at work ab out a year and experiencing intermittent severe neck pain. The symptoms have been gradually worsening. He rates the pain as severe. The symptoms are intermittent. He describes the pain as achi ng. The patient describes arm symptoms down the left side. The arm symptoms account for at lesa st greater than or equal to 50% of his symptoms. His pain travels from his neck to his righ t shoulder and into the right hand. He does not indicate a history of loss of fine motor fu nction. Other findings of progressive myelopathy are not present. His symptoms improve with rest. His symptoms worsen with changing position, standing, sitting, bending, twisting and light exertion. He has tried lifestyle modification, pain medications, rest. PAST MEDICAL HISTORY: Past Medical History Diagnosis Date Thyroid disorder Neuropathy Hands PAST SURGICAL HISTORY: Past Surgical History Procedure Laterality Date Lung surgery Right 3x to fix collapsed lung CURRENT MEDICATIONS: Current Outpatient Prescriptions Medication Sig Dispense Refill cyclobenzaprine (FLEXERIL) 10 mg tablet diclofenac (FLECTOR) 1.3% PTCH apply 2 patches at a time to affected areas two times da de gabapentin (NEURONTIN) 300 mg capsule Take 300 mg by mouth nightly. GRALISE 600 MG tablet 0 LINZESS 290 MCG capsule 0 oxyCODONE (OXYCONTIN) 20 mg 12 hr tablet Take 20 mg by mouth every 12 hours. oxyCODONE (ROXICODONE) 5 mg tablet Take 5 mg by mouth 3 times daily as needed. oxyCODONE-acetaminophen (PERCOCET) 7.5-325 mg per tablet Take 1 tablet by mouth every 4 hours as needed for Pain. OXYCONTIN 40 MG ER abuse-deterrent tablet 0 oxymorphone (OPANA) 5 MG tablet 1-2 tablets every 4-6 hours as needed Testosterone (TESTIM TD) GEL apply every morning to clean, dry, intact skin of shoulder s and upper arms tiZANidine (ZANAFLEX) 4 mg tablet Take 4 mg by mouth Twice daily as needed. zolpidem (AMBIEN) 10 mg tablet Take 10 mg by mouth nightly as needed. No current facility-administered medications for this visit. ALLERGIES: Allergies Allergen Reactions Erythromycin Base Tapentadol Hydrochloride Tetracycline Hcl SOCIAL HISTORY: The patient reports that he has never smoked. He has never used smokeless tobacco. He repo rts that he does not drink alcohol or use illicit drugs. FAMILY HISTORY: Family History Problem Relation Age of Onset Arthritis Heart disease Father Rheumatologic disease Father REVIEW OF SYSTEMS GENERALLY: No fever, no night sweats, no anemia, no fatigue, + recent profound weight estrada es. EYES: + eye problems, + use of corrective lenses, no eye injury, no double vision, no blind ness. EARS, NOSE, AND THROAT: No changes in taste or smell, + hearing difficulty, no ringing in t he ears, no ear drainage, no dizziness, no voice changes, no difficulty swallowing, + signif icant snoring, no sleep apnea, + sinus problems, + major dental work. NEUROLOGICALLY: Please see the review of systems discussed above in the history of present illness. In addition, the patient has numbness/pain in arms, neck injury, back injury, pain in neck, pain in back. PSYCHIATRIC: No depression, + sleep disorders, no anxiety, no bipolar disorder, no psychoti c episodes. CARDIOVASCULAR: No heart attacks, no heart murmur, no heart fluttering, no chest pain, no a nkle swelling. LUNG DISEASE: No shortness of breath, no cough, no tuberculosis, no bloody cough, no asthma , no emphysema/COPD. GASTROINTESTINAL: No bowel disease, no nausea or vomiting, no rectal bleeding, no constipat ion, no stool incontinence, no liver disease, no gallbladder disease, no abdominal pain, no ulcers. KIDNEY DISEASE: No urinary frequency, no painful or difficult urination, no incontinence. ENDOCRINE: No diabetes, no thyroid disease, no osteopenia or osteoporosis, no breast draina ge. SKIN: No breast lumps, no skin changes, no rashes, no itches. HEMATOLOGIC/LYMPHATIC: No enlarged lymph nodes, no easy or unusual bleeding, no personal hi story of cancer. RHEUMATOLOGIC: No joint arthritis, no rheumatoid arthritis. PHYSICAL EXAMINATION: Blood pressure 110/65, pulse 50, resp. rate 15, height 1.854 m (6' 1"), weight 81.647 kg (1 80 lb). Body mass index is 23.75 kg/(m^2). GENERAL: Osmel Perez is in no acute distress with unlabored respirations. Th e patient does appear uncomfortable throughout the exam today. HEENT: HEAD/FACE: EYES: EARS: NASOPHARNYX: OROPHARNYX: Normocephalic and atraumatic. There are no areas of recent trauma. Normal sclerae without icterus. No drainage or tenderness. Clear without drainage. Clear without erythema. NECK (ANTERIOR): Supple and without palpable masses. CHEST: Clear to ausculation without crackles or wheeze. HEART: Regular rate and rhythm without murmurs. ABDOMEN: Soft, non-tender, non-distended, and without palpable masses. The patient is not obese. SPINE: The cervical spine exam shows there is tenderness over the C-5, C-6 and C-7 region. Range of motion is limited. Rotation and extension does cause symptoms to radiate into the extremities on left side. Flexion and extension of the neck does cause severe discomfort. No tenderness in the midline of the thoracic or lumbar spine. There is no major palpable d eformity of the spine. EXTREMITIES: No cyanosis, clubbing, or edema. Distal pulses are palpable. NEUROLOGICAL EXAM: MENTAL STATUS: The patient is awake, alert, and oriented. He follows simple and complex commands. His speech is fluent, he comprehends speech well, and he repeats well. He has no apparent deficits with short or terminal superintendent memory. CRANIAL NERVES: II: Acuity is intact. Britton are full to confrontation. III, IV, : The pupils are reactive. Extraocular movements are intact. No ptosis is note d. V: Facial sensation is intact and symmetric. VII: Facial movements are symmetric. VIII: Hearing is intact bilaterally. IX, X: The uvula and palate move appropriately. XI: Shrug is equal bilaterally. XII: Tongue protrusion is midline. MOTOR EXAM: (5 IS NORMAL) * Indicates pain limited MUSCLE/ MOVEMENT: RIGHT LEFT Deltoids 5 5 Biceps 5 5 Triceps 5 5 Wrist Flexion 5 5 Wrist Extension 5 5 Median Intrinsics 5 5 Ulnar Intrinsics 5 5 Accountancy Professor Strength 5 5 Hip Flexion 5 5 Hip Extension 5 5 Knee Flexion 5 5 Knee Extension 5 5 Dorsiflexion 5 5 Extensor Hallicus Longus 5 5 Plantarflexion 5 5 SENSORY EXAM: Sensory exam shows left C5 and C6-type dysesthesia. REFLEXES: (2 OR 2+ IS NORMAL) REFLEX: RIGHT LEFT BICEPS 2+ 2+ BRACHIORADIALIS 2+ 2+ TRICEPS 2+ 2+ PATELLAR 2+ 2+ ACHILLES 2+ 2+ MACHUCA'S ABSENT ABSENT PLANTAR DOWNGOING DOWNGOING GAIT: Gait is steady. PERIPHERAL NERVE/MISC: Tinel is negative at the wrists and elbows bilaterally. Phalen is negative. Straight leg raise is negative bilaterally. Alex's test of the hips is negative bilaterally. RADIOGRAPHIC REVIEW: The patient's imaging was reviewed in detail with the patient today during the visit. The MRI of the cervical spine from 12/02/14 demonstrates loss of cervical lordosis with resulting kyphosis. There is diffuse spondylosis, worse from C5-7. This results in foraminal stenosis , worse on the left at C5-6 and C6-7. Cervical flexion and extension views show exaggeration of kyphosis C5-6, but no dynamic ins tability. ASSESSMENT: NEUROSURGICAL DIAGNOSES: Encounter Diagnoses Name Primary? Kyphosis of cervical region, unspecified kyphosis type Yes Cervical spondylosis Cervical stenosis of spinal canal Cervical radicular pain Cervicalgia GENERAL DIAGNOSES: Past Medical History Diagnosis Date Thyroid disorder Neuropathy Hands PLAN: Osmel Perez presented today, and it was a pleasure seeing this patient and as sessing his problems. The patient has cervical kyphosis, spondylosis, and stenosis C5-7. Th is is likely contributing to his neck and arm pain. I had a lengthy discussion with the patient about his options for care including surgical a nd non-surgical options. At this point he would like to continue conservative management. I offered physical therapy referral, which he declined. He would like to have facet injection s C5-6 and C6-7 bilaterally. I will refer him to Dr. Briscoe for this. He will follow-up with me as needed. ELECTRONICALLY SIGNED BY: Frank Boland DO, 03/09/2015 14:18 documented in this en counter Plan of Treatment Not on filedocumented as of this encounter Visit Diagnoses + + | Diagnosis | + + | Kyphosis of cervical region, unspecified kyphosis type - Primary | + + | Cervical spondylosis Cervical spondylosis without myelopathy | + + | Cervical stenosis of spinal canal Spinal stenosis in cervical region | + + | Cervical radicular pain Brachial neuritis or radiculitis nos | + + | Cervicalgia | + + documented in this encounter
--- OUTSIDE RECORDS SUMMARY | ~2020-06-18 | XMS | Encounter Summary ---
Demographics + + + | Address | [address] | | | [place] [address] | + + + | Home Phone | | + + + | Preferred Language | Unknown | + + + | Marital Status | | + + + | Mandaeism Affiliation | Unknown | + + + | Race | White | + + + | Ethnic Group | Not or | + + + Author + + + | Author | [facility] | | | and [place] | + + + | Organization | [facility] | | [...] Team Providers + +------+ + | Care Snowsport Instructor Name | Role | Phone | [...] | | [place] | [place] [address] | | | | | [place] [address] | | | | | | [phone] | | | +--------+ + + + [...] + +--------+ + + + | MRI THORACIC SPINE | Routin | 01/12/2018 | | Results for this | | WO CONTRAST | e | 1:10 PM | | procedure are in the | | | | PDT | | results section. | + +--------+ + + + documented in this encounter Results MRI Thoracic Spine wo Contrast (01/12/2018 1:10 PM PDT) + + | Specimen | [...]
--- OUTSIDE RECORDS SUMMARY | ~2020-06-18 | XMS | Encounter Summary ---
Demographics + + + | Address | [address] | | | [place] [address] | + + + | Home Phone | | + + + | Preferred Language | Unknown | + + + | Marital Status | | + + + | Rastafarian Affiliation | Unknown | + + + | Race | White | + + + | Ethnic Group | Not or | + + + Author + + + | Author | [facility] | | | and [place] | + + + | Organization | [facility] | | | and [...] Team Providers + +------+ + | Care Cash Sales Audit Clerk Name | Role | Phone | + [...] | | | | [place] | [phone] | | | | | [address] | | | | | | [phone] | | | +--------+ + + + [...] + + + | XR LUMBAR SPINE 4 + | Routin | 11/09/2017 | | Results for this | | VW | e | 10:46 PM | | procedure are in the | | | | PST | | results section. | + +--------+ + + + documented in this encounter Results XR Lumbar Spine 4 + Vw (11/09/2017 10:46 PM PST) + + | Specimen | [...]
--- OUTSIDE RECORDS SUMMARY | ~2020-06-18 | XMS | Encounter Summary ---
Demographics + + + | Address | [address] | | | [place] [address] | + + + | Home Phone | | + + + | Preferred Language | Unknown | + + + | Marital Status | | + + + | Advent Affiliation | Unknown | + + + | Race | White | + + + | Ethnic Group | Not or | + + + Author + + + | Author | [facility] | | | and [place] | + + + | Organization | [facility] | | | [...] Team Providers + +------+ + | Care Textile Worker Name | Role | Phone | + [...] | | | | [place] | [phone] | | | | | [address] | | | | | | [phone] | | | +--------+ + + + [...] | | WO CONTRAST | e | 10:47 PM | | procedure are in the | | | | PDT | | results section. | + +--------+ + + + documented in this encounter Results MRI Thoracic Spine wo Contrast (01/12/2018 10:47 PM PDT) + + | Specimen | [...]
--- OUTSIDE RECORDS SUMMARY | ~2020-06-18 | XMS | Encounter Summary ---
Demographics + + + | Address | [address] | | | [place] [address] | + + + | Home Phone [...] Team Providers + +------+ + | Care Resource Teacher Name | Role | Phone | + +------+ + | Lang aVca MD | PCP | | + +------+ + Encounter Details +--------+ + + + + | Date | Type | Department | Care Team | Description | +--------+ + + + + | 04/09/ | Orders Only | [facility] | Provider, | | | 2019 | | SYSTEM GENERIC OP | MD [address] | | | | | [address] | [place] | | | | | [address] [place], [place] | [place] [address] | | | | | [address] | | | | | | [phone] | | | +--------+ + + + [...]
--- OUTSIDE RECORDS SUMMARY | ~2020-06-18 | XMS | Encounter Summary ---
Demographics + + + | Address | [address] | | | [place] [address] | + + + | Home Phone | | + + + | Preferred Language | Unknown | + + + | Marital Status | | + + + | Synagogue Affiliation | Unknown | + + + [...] Team Providers + +------+ + | Care Swinging Cut Off Saw Operator Name | Role | Phone | + +------+ + PCP | Unavailable | + +------+ + Encounter Details +--------+ + + + + | Date | Type | Department | Care Team | Description | +--------+ + + + + | 05/24/ | Abstract | [place] [facility] | DATA MIGRATION KAYLYNN | | | 2011 | | Conversion Location | SR | | | | | [address] [facility] | | | | | | [place], [place] | | | | | | [address] | | | | | | [phone] | | | +--------+ + + + [...] + + + | Blood Pressure | 98/64 | 10/14/2011 12:00 AM | | | | | PST | | + + + + + | Pulse | - | - | | + [...] + + + + | Weight | 86.2 kg (190 lb) | 10/14/2011 12:00 AM | | | | | PST | | + + + + + | Height | 185.4 cm (6' 1") | 08/19/2011 12:00 AM | | | | | PST | | + + + + + | Body Mass Index | 25.07 | 08/19/2011 12:00 AM | | | | | PST | | + + + + + documented in this encounter Plan of Treatment Not on filedocumented as of this encounter Visit Diagnoses Not on filedocumented in this encounter
--- OUTSIDE RECORDS SUMMARY | ~2020-06-18 | XMS | Encounter Summary ---
Demographics + + + | Address | [address] | | | [place] [address] | + + + | Home Phone | | + + + | Preferred Language | Unknown | + + + | Marital Status | | + + + | Quaker Affiliation | Unknown | + + + | Race | White | + + + | Ethnic Group | Not or | + + + Author + + + | Author | [facility] | | | and [place] | + + + | Organization | [facility] | | | [...] Team Providers + +------+ + | Care Industrial Service Technician Name | Role | Phone | + +------+ + PCP | Unavailable | + +------+ + Reason for Visit +--------+--------+ + | Reason | Onset | Comments | | | Date | | +--------+--------+ + | Other | 10/10/ | | | | 2019 | | +--------+--------+ + Encounter Details +--------+ + + + + | Date | Type | Department | Care Team | Description | +--------+ + + + + | 10/10/ | Telephone | [facility] [place] | Oz Briscoe | Other | | 2019 | | PHYSIATRY [address] | T, MD [address] | | | | [address] | [place], [place] | | | | | [place], [place] | [address] | | | | | [address] | | | | | | [phone] | | | +--------+ + + + [...] this encounter Miscellaneous Notes Telephone Encounter - Virginie Soto - 10/24/2018 11:22 AM PSTError encounter documented in this encoun ter Plan of Treatment Not on filedocumented as of this encounter Visit Diagnoses Not on filedocumented in this encounter"
--- OUTSIDE RECORDS SUMMARY | ~2020-06-18 | XMS | Encounter Summary ---
Demographics + + + | Address | [address] | | | [place] [address] | + + + | Home Phone | | + + + | Preferred Language | Unknown | + + + | Marital Status | | + + + | Yazidism Affiliation | Unknown | + + + | Race | White | + + + | Ethnic Group | Not or | + + + Author + + + | Author | [facility] | | | and [place] | + + + | Organization | [facility] | | | [...] Team Providers + +------+ + | Care Business Administrator Name | Role | Phone | + +------+ + | Jai Lopez MD | PCP | | + +------+ + Encounter Details +--------+ + + + + | Date | Type | Department | Care Team | Description | +--------+ + + + + | 03/09/ | [facility] | [facility] | Frank Boland, | Neck pain | | 2014 | Encounter | MED CTR XRAY [address] | DO [address] | | | | | [place] | [address] | | | | | [place] [address] | [address] | | | | | [phone] | | | +--------+ + + + [...] + +--------+ + + + | XR CERVICAL SPINE 2 | Routin | 03/09/2015 | Neck pain | Results for this | | OR 3 VIEWS | e | 12:54 PM | | procedure are in the | | | | PDT | | results section. | + +--------+ + + + documented in this encounter Results XR CERVICAL SPINE 2 [...] ST[address] | [address] | [place] | [phone] | | [facility] | | [address] | | | - IMAGING | | | | + + + + + documented in this encounter Visit Diagnoses + + | Diagnosis | + + | Neck pain Cervicalgia | + + documented in this encounter"
--- OUTSIDE RECORDS SUMMARY | ~2020-06-18 | XMS | Encounter Summary ---
Demographics + + + | Address | [address] | | | [place] [address] | + + + | Home Phone | | + + + | Preferred Language | Unknown | + + + | Marital Status | Unknown | + + + | Spiritism Affiliation | Unknown | + + + | Race | Unknown | + + + | Ethnic Group | Unknown | + + + Author + + + | Author | [facility] | + + + | Organization | [facility] | + + + | Address | Unknown | + + + | Phone | Unavailable | + + + Care Team Providers + +------+ + | Care Nuclear Equipment Test Engineer Name | Role | Phone | + +------+ + | Lang Vaca MD | PCP | | + +------+ + Encounter Details +--------+ + + + + | Date | Type | Department | Care Team | Description | +--------+ + + + + | 06/13/ | Abstract | [facility] | Clinic, | | | 2013 | | Center at [facility] [address] | Gastroenterology | | | | | [address] [facility] | | | | | | [facility] and | | | | | | [facility], [facility] [address] | | | | | | [place], [place] | | | | | | [address] | | | | | | [phone] | | | +--------+ + + + [...]
--- OUTSIDE RECORDS SUMMARY | ~2020-06-18 | XMS | Encounter Summary ---
Demographics + + + | Address | [address] | | | [place] [address] | + + + | Home Phone | | + + + | Preferred Language | Unknown | + + + | Marital Status | | + + + | Scientologist Affiliation | Unknown | + + + | Race | White | + + + | Ethnic Group | Not or | + + + Author + + + | Author | [facility] | | | and [place] | + + + | Organization | [facility] [...] Team Providers + +------+ + | Care Computer Systems Technician Name | Role | Phone | [...] | Cervical | Rachna, | [address] | | | | | spondylosis | Oz Valles MD | [place], | | | | | Procedures | [address] | [place] | | | | | [place] IN[place] | [place] | [address] | | | | | DX/THER AGNT | [place], [place] | Phone: | | | | | [place] | [address] | [phone] | | | | | FACET JOINT, | Phone: | Fax: | | | | | | [phone] | [phone] | | | | | CERV/THORAC, | Fax: | | | | | | 1ST LEVEL | [phone] | | | | | | ND INJ | | | | | | | DX/THER AGNT | | | | | | | [place] | | | | | | | FACET JOINT, | | | | | | | | | | | | | | CERV/THORAC, | | | | | | | 2ND LEVEL | | | | | | | ND | | | | | | | TRIAMCINOLON | | | | | | | E ACET INJ | | | | | | | NOS, 10 MG | | | | | | | Bilat. | | | | | | | C5-C6, C6-C7 | | | | | | | Facet | | | +--------+--------+ + + + + Encounter Details +--------+ + + + + | Date | Type | Department | Care Team | Description | +--------+ + + + + | 01/15/ | Hospital | [facility] | Ronal Benedict, | Spondylosis of | | 2019 | Encounter | MED CTR XRAY [address] | PA-C [address] | cervical region | | | | [place] | [address] [place] | without myelopathy | | | | [place] [address] | [place] [address] | or radiculopathy | | | | [phone] | [phone] | | | | | | | | | | | | Interior Design Consult[employer], [facility] | | | | | | [place] | | +--------+ + + + + Social History + + + +--------+ + | Tobacco Use | Types | Packs/Day | Years | Date | | | | | Used | | + + + +--------+ + | Former Smoker | Cigarettes | | | Quit: 2015 | + + + +--------+ + + [...] +---------+ + + | Blood Pressure | 125/83 | 01/15/2019 5:18 PM | | | | | PDT | | + +---------+ + + | Pulse | 80 | [...] + +---------+ + + | B-D 3CC LUER-ION | | | 0 | //20 | | | SYR 21GX1" 21G X 1" | | | | 18 | | | 3 ML MISC | | | | | | + + + +---------+ + + | BD HYPODERMIC | | | 0 | /12/29 | | | NEEDLE 18G X 1" MISC | | | | 18 | | + + + +---------+ + + | Buprenorphine | Place under the | | 0 | | | | HCl-Naloxone HCl | tongue. | | | | | | (SUBOXONE SL) | | | | | | + + + +---------+ + + | GRALISE 600 MG | | | 0 | / | | | tablet | | | | 15 | | + + + +---------+ + + | ondansetron | dissolve 1 tablet ON | | 0 | 06/08/20 | | | (ZOFRAN ODT) 4 mg | TONGUE every 4 | | | 18 | | | disintegrating | hours if needed | | | | | | tablet | | | | | | + + + +---------+ + + | ondansetron | | | 0 | 06/25/20 | | | (ZOFRAN) 4 mg tablet | | | | 18 | | + + + +---------+ + + | oxyCODONE | | | 0 | 04/24/20 | | | (OXYCONTIN) 10 mg ER | | | | 18 | | | abuse-deterrent | | | | | | | tablet | | | | | | + + + +---------+ + + | SUBOXONE 12-3 MG | DIS 1 FILM UNT ONCE | | 0 | 06/12/20 | | | SL film | D | | | 18 | | + + + +---------+ + + | SUBOXONE 4-1 MG SL | take 1 FILM under | | 0 | 06/08/20 | | | film | the tongue three | | | 18 | | | | times a day for pain | | | | | + + + +---------+ + + | SUBOXONE 8-2 MG SL | | | 0 | 08/11/20 | | | film | | | | 18 | | [...] + +---------+ + + | testosterone | | | 0 | 08/11/20 | | | cypionate | | | | 18 | | | (DEPO-TESTOSTERONE) | | | | | | | 200 mg/mL injection | | | | | | + + + +---------+ + + | TESTOSTERONE | | | 0 | | | | CYPIONATE IM | | | | | | + [...] | FL FACET INJECTION | Routin | 01/15/2019 | Spondylosis of | Results for this | | CERVICAL | e | 4:56 PM | cervical region | procedure are in the | | | | PDT | without myelopathy | results section. | | | | | or radiculopathy | | + +--------+ + + + documented in this encounter Results FL Facet Injection Cervical (01/15/2019 4:56 PM PDT) + + | Specimen | + + | | + + + + -+ | Narrative | Performed At | + + -+ | | [facility] | | 01/15/2019Cervical Facet Steroid Injections Diagnosis: Cervical | | | Spondylosis ICD-9 Code 721.0 Osmel Jose Alejandro Ana presents to the | | | fluoroscopy [...] in this encounter Administered Medications + +--------+ +-------+------+------+ | Medication Order | MAR | Action | Dose | Rate | Site | | | Action | Date | | | | + +--------+ +-------+------+------+ | iohexol (OMNIPAQUE 300) 300 | Given | 01/16/20 | 4 mLs | | | | mg/mL injection 4 mL 4 mL, | | 19 5:04 | | | | | Intra-articular, ONCE, 01/15/19 | | PM PDT | | | | | at 1715, For 1 dose | | | | | | + +--------+ +-------+------+------+ +---+---+ | | | +---+---+ + +-------+ +-------+---+---+ | lidocaine (PF) 1% injection 2 | Given | 01/16/20 | 2 mLs | | | | mL 2 mL, Intra-articular, ONCE, | | 19 5:06 | | | | | 01/15/19 at 1715, For 1 dose | | PM PDT | | | | + +-------+ +-------+---+---+ +---+---+ | | | +---+---+ + +-------+ +-------+---+ + | lidocaine buffered 0.9% | Given | 01/16/20 | 6 mLs | | Other | | injection 6 mL 6 mL, | | 19 5:02 | | | (Comment | | Intradermal, ONCE, Mon01/15/19 at | | PM PDT | | | ) | | 1715, For 1 dose | | | | | | + +-------+ +-------+---+ + +---+---+ | | | +---+---+ + +-------+ +-------+---+---+ | triamcinolone acetonide | Given | 01/16/20 | 80 mg | | | | (KENALOG-40) 40 mg/mL injection | | 19 5:06 | | | | | 80 mg 80 mg, Intra-articular, | | PM PDT | | | | | ONCE, Mon01/15/19 at 1715, For 1 | | | | | | | dose, Shake well. Not for IV | | | | | | | use., | | | | | | + +-------+ +-------+---+---+ +---+---+ | | | +---+---+ documented in this encounter
--- OUTSIDE RECORDS SUMMARY | 2020-06-18 16:28 | XMS ---
PreManage Notification: NAT SALAZAR Security Fashion Designer Events No recent Security Events currently on file CRITERIA MET - [facility] PROVID[facility] NICOLE JOSE [employer]/Director Mobile 06/11/2019-Current PHONE: [phone] Roberto has no Care Guidelines for this patient. EKimmy VISIT COUNT (12 MO.) 1 JACEK [place] TOTAL 1 NOTE: Visits indicate total known visits. ED/UCC VISIT TRACKING (12 MO.) 06/18/2020 15:16 JACEK Moura [place] TYPE: Emergency COMPLAINT: - NECK, LEFT SHOULDER PAIN INPATIENT VISIT TRACKING (12 MO.) No inpatient visits to display in this time frame [email or web address]
[2020-06-18] MEDS ORDERED: SUBOXONE 8 MG-1 EAC1 SL (16:31)
[2020-06-18] MEDS ORDERED: CYCLOBENZAPRINE10 MG PO (17:05)
[2020-06-18] MEDS ORDERED: METHYLPREDNISOLO4 M1 PO (17:05)
[2020-06-18] MEDS ORDERED: LIDODERM1 EACH TOP (17:05)
== END 2020-06-18 17:25 | disposition home or self-care (01) ==
LOC: ED 15:15
DX: S16.1XXA Strain of muscle, fascia and tendon at neck level, initial encounter (principal); S29.012A Strain of muscle and tendon of back wall of thorax, initial encounter; W22.8XXA Striking against or struck by other objects, initial encounter; Z87.891 Personal history of nicotine dependence; Z88.1 Allergy status to other antibiotic agents; Z79.899 Other long term (current) drug therapy; Z79.891 Long term (current) use of opiate analgesic
CPT/HCPCS: 99283

== ENCOUNTER 2023-08-31 09:36 | Day surgery (SDC) | payer BC ==
[2023-08-23 11:28] VITALS: BP 102/69
[~2023-08-31] VITALS: Ht 188 cm; Wt 75.0 kg
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
[~2023-08-31 09:36] MED LIST changes: +CYCLOBENZAPRINE10 MG PO; +LIDODERM1 EACH TOP; +METHYLPREDNISOLO4 M1 PO; +SUBOXONE 8 MG-1 EAC1 SL
[2023-08-31 09:46] VITALS: BP 114/67
--- NOTE | 2023-08-31 11:19 | NUR ---
08/31/23 1119 Caron Mcgee 1056 PT ARRIVED TO PACU ON 2L VIA MASK, PT WAKES AND EASILY FALLS BACK TO SLEEP. RESP EVEN AND UNLABORED. 1105 PT WAKES AND ROLLS TO BACK, AND HOB INCREASED. PT DENIES CONCERNS PT ENCOURAGED TO PASS GAS. 1115 MD AT BEDSIDE TALKING TO PT AND PT SIPPING WATER. ALL QUESTIONS ANSWERED AND PLAN OF CARE DISCUSSED.
[2023-08-31 11:27] VITALS: BP 111/78
== END 2023-08-31 11:33 | disposition home or self-care (01) ==
LOC: DS 09:36 → OPS 09:36 → DS 10:50 → OPS 11:33 → DS 11:45 → OPS 11:45
PROVIDERS: ATTEND Colon & Rectal Surgery
PROC: 0DJD8ZZ Inspection of Lower Intestinal Tract, Via Natural or Artificial Opening Endoscopic (ICD-10-PCS; principal; 2023-08-31 10:50)
DX: Z12.11 Encounter for screening for malignant neoplasm of colon (principal); K64.8 Other hemorrhoids; Q43.8 Other specified congenital malformations of intestine; R00.1 Bradycardia, unspecified; G89.4 Chronic pain syndrome; Z87.09 Personal history of other diseases of the respiratory system; Z87.891 Personal history of nicotine dependence; Z88.1 Allergy status to other antibiotic agents; Z79.899 Other long term (current) drug therapy
CPT/HCPCS: G0121; J2001; J2704; J7121